=== PATIENT | female | born 1940 | race Caucasian/White ===

== ENCOUNTER → 2016-08-21 | Outpatient (CLI) | payer OTHER ==
[2015-04-12 10:54] VITALS: BP 134/82
[~2016-08-21] MED LIST: DOCU-27 PO; GABA-585 PO; GLIM4TAB2 PO; HYDR2TAB13 PO; IBUP-1060 PO; INSU300I SQ; IOHEXOL 180 MG/ML 10 ML VIAL. ONE; LEVO100T5 PO; LISI1TAB7 PO; METF10002 PO; METH4TAB2 PO; OMEP20CA9 PO; OXYC-244 PO; POLY17PO5 PO; SIMV40TA3 PO; SITA100T PO; methylPREDNISolone ACETATE 40 MG/ML VIAL. ONE; methylPREDNISolone ACETATE 80 MG/ML VIAL. ONE
--- NOTE | 2016-08-21 23:40 | PAIN ---
DATE OF SERVICE: 08/21/2016 DIAGNOSES: Lumbar radiculopathy with lumbar degenerative disk disease and lumbar spinal stenosis. HISTORY OF PRESENT ILLNESS: The patient is a 75-year-old female who returns for followup status post lumbar epidural steroid injection x 2. The patient reports she did very well after last injection, about 60% improvement overall in her low back and bilateral gluteus and lower extremity pain with some pain now radiating to the anterior thigh as well bilaterally, essentially right equal to left. The patient reports worse with standing and walking, changing positions, better as the day goes on. She is also going to start some physical therapy about 1 week and some pool therapy as well that she has arranged through her [employer] membership. The patient reports otherwise doing well. No new motor or sensory deficits. Still some pain in the low back and legs ____ reports anywhere from a 3 to 7 on a scale of 10 and is currently a 3 today. The patient describes it is dull and aching for the most part, sometimes a shooting pain in the legs as well. The patient's old chart was reviewed as her current medication regimen and updated. Current review of systems is updated today as well. PHYSICAL EXAMINATION: VITAL SIGNS: The patient's blood pressure is 159/79, pulse 80, respirations 18, temperature 98.2 degrees Fahrenheit, height is 5 feet 5 inches, weight is 222 pounds. GENERAL: The patient is awake, alert, oriented, appropriate, very pleasant demeanor. HEENT: Shows normocephalic, atraumatic. Extraocular movements are intact and symmetrical. Oral cavity shows mucous membranes moist and pink. Dentition is intact. NECK: Shows anterior throat supple without palpable lymphadenopathy noted. Swallow reflex is symmetrical. CHEST: Shows normal on inspection. Breath sounds clear to auscultation bilaterally. HEART: Shows S1 and S2 clear. ABDOMEN: Obese, soft, nontender, nondistended. BACK: Shows spine grossly midline. Slight exaggeration of thoracic kyphosis and mild flattening of lumbar lordotic curvature. Lumbar paraspinous muscle shows some mild tenderness with palpation in the paraspinous musculature of the lumber spine without significant radiation and appears symmetrical and normal muscle girth. The patient shows good rotational motion of lumbar spine both laterally as well as extension and flexion without significant pain reported. EXTREMITIES: Lower extremities showed deep tendon reflexes 1+, the patellar and tendo calcaneus tendons are equal. Motor exam is strong with 5/5 dorsiflexion and extension on the right and approximately 4/5 on the left. PLAN: Options were discussed with the patient. We will proceed with the third lumbar epidural steroid injection today with fluoroscopic guidance. Risks were again discussed including, but not limited to bleeding, infection, possibility of epidural hematoma and subsequent neurologic compromise, dural puncture, headaches, spinal cord and/or nerve damage, side effects of steroid medication and poor results regarding pain control. The patient understands and wishes to proceed. The patient will return to clinic in approximately 2 weeks for followup, was counseled on return appointment, activity level and side effects to be aware of. DIAGNOSIS: Lumbar radiculopathy with lumbar degenerative disk disease and lumbar spinal stenosis. PROCEDURE: Lumbar epidural steroid injection, translaminar approach at the L4-L5 level using C-arm fluoroscopic guidance as well as local anesthetic. Medications injected are 120 mg Depo-Medrol plus 10 mL of preservative-free normal saline and 2 mL of Isovue contrast. CONDITION AT DISCHARGE: Stable. The patient tolerated the procedure well, had no complications. CANDELARIA YATES MD DR: KELVIN/timothy JOB#: [id number] / [id number]
== END | disposition home or self-care (01) ==
LOC: PNCL 09:27
PROVIDERS: ATTEND Anesthesiology
DX: M51.16 Intervertebral disc disorders with radiculopathy, lumbar region (principal); M48.06 Spinal stenosis, lumbar region; E78.00 Pure hypercholesterolemia, unspecified; J40 Bronchitis, not specified as acute or chronic; K21.9 Gastro-esophageal reflux disease without esophagitis; M19.90 Unspecified osteoarthritis, unspecified site; E11.9 Type 2 diabetes mellitus without complications; E03.9 Hypothyroidism, unspecified; F17.200 Nicotine dependence, unspecified, uncomplicated; D64.9 Anemia, unspecified; Z90.710 Acquired absence of both cervix and uterus; Z90.49 Acquired absence of other specified parts of digestive tract; N39.0 Urinary tract infection, site not specified
CPT/HCPCS: 62323; J1030; J1040

== ENCOUNTER → 2016-11-30 | Outpatient (CLI) | payer OTHER ==
[2015-04-12 10:54] VITALS: BP 134/82
[~2016-11-30] MED LIST changes: -IOHEXOL 180 MG/ML 10 ML VIAL. ONE; +METF-620 PO; -METF10002 PO; +POLY17PO29 PO; -POLY17PO5 PO; -methylPREDNISolone ACETATE 40 MG/ML VIAL. ONE; -methylPREDNISolone ACETATE 80 MG/ML VIAL. ONE
--- NOTE | 2016-12-01 03:44 | PAIN ---
DATE OF SERVICE: 11/30/2016 DIAGNOSES: Lumbar radiculopathy with lumbar degenerative disk disease and lumbar spinal stenosis. HISTORY OF PRESENT ILLNESS: The patient is a 76-year-old female who returns for followup status post lumbar epidural steroid injections in the past, most recently on 08/21/2016. The patient reports she did very well with about 75% improvement in her low back and bilateral lower extremity pain. The pain is beginning to return now over the past week or 2 and being caused more pain with walking, standing, change in positions in the low back, radiating to the posterior gluteus, posterior lateral thighs into the posterior lower legs into the back of the knees and into the thighs on occasion, but only when she is on her feet for more than about 10-15 minutes. The patient reports when she sits down, this helps decrease the pain after about 5 or 10 minutes. She is having some difficulty sleeping at night that she was doing very well initially, but the pain is beginning awaken her from sleep at night, but only every other night or so, not every night. The patient reports pain is anywhere from 3-7 on a scale 10 and is 3 currently, 7 with standing, walking, changing positions or sitting for prolonged periods, although usually the sitting does help the pain. The patient reports it continues to radiate into the posterior gluteus thighs bilaterally. It is a dull and aching pain, also a sharp shooting pain occasionally with walking. The patient reports no new motor or sensory deficits, no new bowel or bladder incontinence or other complaints. PHYSICAL EXAMINATION: VITAL SIGNS: The patient's blood pressure is 151/77, pulse 73, respirations are 20, temperature is 97.9 degrees Fahrenheit. Height is 5 feet 5 inches, weighs 220 pounds. GENERAL: The patient is awake, alert, oriented, appropriate, very pleasant demeanor. HEENT: Head shows normocephalic, atraumatic. Extraocular movements are intact and symmetrical. Oral cavity, mucous membranes are moist and pink. Dentition is intact. NECK: Shows anterior throat supple without palpable lymphadenopathy noted. Swallow reflex is symmetrical. CHEST: Shows normal on inspection. Breath sounds clear to auscultation bilaterally. HEART: Shows S1 and S2 clear. No murmurs auscultated. ABDOMEN: Soft, nontender, nondistended. No palpable organomegaly is noted. No rebound or guarding demonstrated. BACK: Shows spine grossly midline. The patient's lumbar paraspinous musculature shows some asymmetry on inspection, but without obvious decreasing curvature. With palpation shows some moderate tenderness with palpation throughout the upper, middle, lower distribution. Paraspinous muscles are firm with normal muscle girth and only very diffuse tenderness and only mildly so. No tenderness over the spinous processes, sacrum or sacroiliac regions. The patient shows good rotational motion of the lumbar spine, both laterally as well as extension and flexion without significant increase in pain. LOWER EXTREMITIES: Showed deep tendon reflexes at 1+ in the patellar and tendo calcaneus tendons. Motor exam is strong with approximately 5/5 right dorsiflexion, extension and 4/5 on the left dorsiflexion, extension and straight leg raise noted to be mildly positive bilaterally about 45 degrees, but is quickly relieved with knee flexion bilaterally. Gaenslen's and Wild's maneuvers are negative bilaterally as well. Peripheral pulses are 1+ posterior tibial and dorsalis pedis pulses. No peripheral edema is noted. Options were discussed with the patient and the patient's old chart was reviewed as her current medication regimen updated. Current review of systems updated today as well. We will proceed with a preauthorization for lumbar epidural steroid injection. She has done very well with these in the past. The patient will return to clinic in approximately 1 week. We will plan on proceeding with lumbar epidural steroid injection at that time. The patient will continue with her physical therapy in the pool. She has been going to the [facility] and using the pool there at least twice a week, which she reports she feels does help keep the back strong, but is not helping with pain radiating into the lower extremities. CANDELARIA YATES MD DR: KELVIN/timothy JOB#: [id number] / [id number]
== END | disposition home or self-care (01) ==
LOC: PNCL 11:01
PROVIDERS: ATTEND Anesthesiology
DX: M51.16 Intervertebral disc disorders with radiculopathy, lumbar region (principal); M48.06 Spinal stenosis, lumbar region
CPT/HCPCS: G0463

== ENCOUNTER 2017-04-04 13:20 | Emergency (ER) | payer OTHER ==
[~2017-04-04] VITALS: Ht 165.1 cm; Wt 99.3 kg
[~2017-04-04 13:20] MED LIST changes: +DOCU-109 PO; -DOCU-27 PO; -HYDR2TAB13 PO; +HYDR2TAB31 PO; -OXYC-244 PO; +OXYC-327 PO
--- NOTE | 2017-04-04 13:53 | PHYS DOC ---
Past Medical History Past Medical History: Arthritis, Diabetes-Type II, High Cholesterol Past Surgical History: Cholecystectomy, Hysterectomy, Other Additional Past Surgical Histo: bowel resection Alcohol Use: None Drug Use: None Adult General Chief Complaint Chief Complaint: GI PROBLEM HPI HPI Patient is a 76 year old female who presents with weakness, decreased appetite, loose stools. She states she got a colonoscopy about a week ago and Dr. Padilla. She states she's having some discomfort suprapubically and epigastric area. She denies any blood in her stools. She states she's had a colectomy in the past secondary to a polyp. She states it she saw her primary care physician they gave her some white pills to take and it helped decrease the amount of stools but now she is out of those pills and she's having increasing stool again. She states that today she felt a little weaker than normal due to the diarrhea. Review of Systems Review of Systems Constitutional: Denies fever or chills [] Eyes: Denies change in visual acuity, redness, or eye pain [] HENT: Denies nasal congestion or sore throat [] Respiratory: Denies cough or shortness of breath [] Cardiovascular: No additional information not addressed in HPI [] GI: abdominal pain, nausea, vomiting,Denies bloody stools or diarrhea [] : Denies dysuria or hematuria [] Musculoskeletal: Denies back pain or joint pain [] Integument: Denies rash or skin lesions [] Neurologic: Denies headache, focal weakness or sensory changes [] Endocrine: Denies polyuria or polydipsia [] Current Medications Current Medications Current Medications Medications (Trade) Dose Ordered Sig/[facility] Start Time Stop Time Status Last Admin Dose Admin Info (Do NOT chart on this entry -- for MONITORING) 1 each PRN DAILY PRN 04/04/17 15:45 04/06/17 15:44 Iohexol (Omnipaque 240 Mg/ml) 30 ml 1X ONCE 04/04/17 15:30 04/04/17 15:31 DC 04/04/17 16:35 30 ML Allergies Allergies Allergies Coded Allergies Type Severity Reaction Last Updated Verified No Known Drug Allergies 12/26/14 No Physical Exam Physical Exam Constitutional: Well developed, well nourished, no acute distress, non-toxic appearance. [] HENT: Normocephalic, atraumatic, bilateral external ears normal, oropharynx moist, no oral exudates, nose normal. [] Eyes: PERRLA, EOMI, conjunctiva normal, no discharge. [] Neck: Normal range of motion, no tenderness, supple, no stridor. [] Cardiovascular:Heart rate regular rhythm, no murmur [] Lungs & Thorax: Bilateral breath sounds clear to auscultation [] Abdomen: Bowel sounds normal, soft, nontender to palpation epigastric area and superpubic area, no rebound or guarding, no masses, no pulsatile masses. [] Skin: Warm, dry, no erythema, no rash. [] Back: No tenderness, no CVA tenderness. [] Extremities: No tenderness, no cyanosis, no clubbing, ROM intact, no edema. [] Neurologic: Alert and oriented X 3, normal motor function, normal sensory function, no focal deficits noted. [] Psychologic: Affect normal, judgement normal, mood normal. [] Current Patient Data Vital Signs Vital Signs Date Time Temp Pulse Resp B/P (MAP) Pulse Ox O2 Delivery O2 Flow Rate FiO2 04/04/17 14:00 98.2 73 19 134/82 (99) 96 Room Air 98.2 Lab Values Laboratory Tests Test 04/04/17 13:50 04/04/17 14:00 04/04/17 17:30 Urine Collection Type Unknown Urine Color Yellow Urine Clarity Clear Urine pH 6.0 Urine Specific [place] 1.015 Urine Protein Negative mg/dL (NEG-TRACE) Urine Glucose (UA) 500 mg/dL (NEG) Urine Ketones (Stick) Negative mg/dL (NEG) Urine Blood Negative (NEG) Urine Nitrite Negative (NEG) Urine Bilirubin Negative (NEG) Urine Urobilinogen Dipstick 0.2 mg/dL (0.2 mg/dL) Urine Leukocyte Esterase Moderate (NEG) Urine RBC Rare /HPF (0-2) Urine WBC 11-20 /HPF (0-4) Urine Squamous Epithelial Cells Few /LPF Urine Bacteria Few /HPF (0-FEW) White Blood Count 9.1 x10^3/uL (4.0-11.0) Red Blood Count 4.43 x10^6/uL (3.50-5.40) Hemoglobin 13.2 g/dL (12.0-15.5) Hematocrit 39.6 % (36.0-47.0) Mean Corpuscular Volume 90 fL (79-100) Mean Corpuscular Hemoglobin 30 pg (25-35) Mean Corpuscular Hemoglobin Concent 33 g/dL (31-37) Red Cell Distribution Width 14.3 % (11.5-14.5) Platelet Count 222 x10^3/uL (140-400) Neutrophils (%) (Auto) 69 % (31-73) Lymphocytes (%) (Auto) 23 % (24-48) L Monocytes (%) (Auto) 7 % (0-9) Eosinophils (%) (Auto) 1 % (0-3) Basophils (%) (Auto) 1 % (0-3) Neutrophils # (Auto) 6.3 x10^3uL (1.8-7.7) Lymphocytes # (Auto) 2.1 x10^3/uL (1.0-4.8) Monocytes # (Auto) 0.6 x10^3/uL (0.0-1.1) Eosinophils # (Auto) 0.0 x10^3/uL (0.0-0.7) Basophils # (Auto) 0.0 x10^3/uL (0.0-0.2) Prothrombin Time 12.4 SEC (11.7-14.0) Prothrombin Time INR 1.0 (0.8-1.1) Sodium Level 134 mmol/L (136-145) L Potassium Level 4.1 mmol/L (3.5-5.1) Chloride Level 97 mmol/L (98-107) L Carbon Dioxide Level 26 mmol/L (21-32) Anion Gap 11 (6-14) Blood Urea Nitrogen 13 mg/dL (7-20) Creatinine 1.4 mg/dL (0.6-1.0) H Estimated GFR (Cockcroft-Gault) 36.8 Glucose Level 219 mg/dL (70-99) H Calcium Level 9.5 mg/dL (8.5-10.1) Magnesium Level 1.9 mg/dL (1.8-2.4) Total Bilirubin 0.3 mg/dL (0.2-1.0) Direct Bilirubin 0.1 mg/dL (0.0-0.2) Aspartate Amino Transferase (AST) 28 U/L (15-37) Alanine Aminotransferase (ALT) 32 U/L (14-59) Alkaline Phosphatase 55 U/L (46-116) Creatine Kinase 42 U/L (26-192) 39 U/L (26-192) Creatine Kinase MB (Mass) 0.5 ng/mL (0.0-3.6) 0.5 ng/mL (0.0-3.6) Creatine Kinase MB Relative Index % (0-4) % (0-4) Troponin I Quantitative < 0.017 ng/mL (0.000-0.055) < 0.017 ng/mL (0.000-0.055) AN-Sfu-E-Type Natriuretic Peptide 137 pg/mL (0-124) H Total Protein 7.7 g/dL (6.4-8.2) Albumin 4.2 g/dL (3.4-5.0) Lipase 92 U/L (73-393) Thyroid Stimulating Hormone (TSH) 1.423 uIU/mL (0.358-3.74) Laboratory Tests 04/04/17 14:00 Laboratory Tests 04/04/17 14:00 EKG EKG EKG shows sinus rhythm 3-[address] elevations, T-wave inversions noted in 1 and aVL, right axis deviation, QTC 411 ms, as interpreted by me. Radiology/Procedures Radiology/Procedures [facility] [address], [place] [id number] IMAGING REPORT Signed PATIENT: BENEDICTO ACOSTA ACCOUNT: [id number] : 1940 LOCATION: ER AGE: 76 SEX: F EXAM STATUS: REG ER ORD. PHYSICIAN: ANGELO MEJIA MD REASON: abd pain PROCEDURE: CT ABD PEL W/ORAL CONTRST ONLY CT of the abdomen and pelvis without contrast, 04/04/2017: History: Diarrhea No IV contrast was administered due to the patient's renal insufficiency. The unopacified liver shows no abnormality. The gallbladder is surgically absent. No pancreatic abnormality is seen. The spleen is of normal size. The kidneys show no evidence of obstruction. There is mild streaky bilateral perinephric scarring and/or edema, similar to that seen on 12/31/2014. The adrenal glands are unremarkable. Aortoiliac calcific plaquing is present without evidence of aneurysm. No abdominal or pelvic adenopathy is seen. The uterus is surgically absent. The bowel loops are not dilated. No mural thickening is seen. No free air or significant free fluid is evident in the abdomen or pelvis. There is diastases of the rectus abdominis musculature with anterior bulging of the intervening fascia. A similar appearance was present on the previous study. Moderate multilevel degenerative changes are present in the spine. IMPRESSION: 1. Chronic findings as described above. 2. No acute abdominal or pelvic abnormality is detected. PQRS Compliance Statement: One or more of the following individualized dose reduction techniques were utilized for this examination: 1. Automated exposure control 2. Adjustment of the mA and/or kV according to patient size 3. Use of iterative reconstruction technique DICTATED and SIGNED BY: VICK BAH MD DATE: 04/04/17 1650 CC: [facility]; ANGELO MEJIA MD ~ Impressions: Diarrhea Diabetes UTI Course & Med Decision Making Course & Med Decision Making Pertinent Labs and Imaging studies reviewed. (See chart for details) Labs show possible urinary tract infection. Her repeat troponin is negative. CT adamant pelvis were nonacute. We'll discharge with 3 days of Cipro 500 mg twice daily. Patient has a follow-up appointment tomorrow with Dr. Morales. Return precautions given. Patient's agreeable Plan B discharged in stable condition this time. Dragon Disclaimer Dragon Disclaimer This electronic medical record was generated, in whole or in part, using a voice recognition dictation system. Departure Departure Impression: Primary Impression: Abdominal pain Additional Impression: UTI (urinary tract infection) Disposition: 01 HOME, SELF-CARE Condition: STABLE Referrals: [facility] (PCP) Patient Instructions: Chronic Diarrhea Additional Instructions: The CAT scan revealed and pelvis did not show any acute abnormality's. Your labs also are within normal limits. Your follow-up appointment tomorrow with Dr. Morales. We've offered her admission to the hospital but you have declining rather go home. If you develop weakness, worsening pain, troubles breathing, or other concerns please return back to emergency department. Scripts Ciprofloxacin Hcl (CIPRO) 500 Mg Tablet 1 TAB PO BID, #6 TAB Prov: ANGELO MEJIA MD 04/04/17 Problem Qualifiers Primary Impression: Abdominal pain Abdominal location: epigastric Qualified Codes: R10.13 - Epigastric pain Additional Impression: UTI (urinary tract infection) Urinary tract infection type: acute cystitis Hematuria presence: without hematuria Qualified Codes: N30.00 - Acute cystitis without hematuria ANGELO MEJIA MD Apr 04, 2017 13:53
[2017-04-04 14:00] VITALS: BP 134/82
[2017-04-04 14:05] LABS: BILIRUBIN,URINE NEGATIVE (NEG); GLUCOSE,URINE 500 mg/dL (NEG); NITRITE,URINE NEGATIVE (NEG); PROTEIN,URINE NEGATIVE (NEG-TRACE); UROBILINOGEN,URINE 0.2 mg/dL (0.2 mg/dL)
[2017-04-04 14:15] LABS: BASO % 1 % (0-3); EOS % 1 % (0-3); HEMATOCRIT 39.6 % (36.0-47.0); HEMOGLOBIN 13.2 g/dL (12.0-15.5); LYMPH # 2.1 x10^3/uL (1.0-4.8); LYMPH % 23 % (24-48); MEAN CORPUSCULAR HEMOGLOBIN 30 pg (25-35); MEAN CORPUSCULAR HGB CONC 33 g/dL (31-37); MEAN CORPUSCULAR VOLUME 90 fL (79-100); MONO % 7 % (0-9); NEUT % 69 % (31-73); PLATELET COUNT 222 x10^3/uL (140-400); RED BLOOD COUNT 4.43 x10^6/uL (3.50-5.40); RED CELL DISTRIBUTION WIDTH 14.3 % (11.5-14.5); WHITE BLOOD COUNT 9.1 x10^3/uL (4.0-11.0)
[2017-04-04 14:22] LABS: BACTERIA,URINE FEW /HPF (0-FEW); RBC,URINE RARE /HPF (0-2); SQUAMOUS EPITHELIAL CELL,UR FEW /LPF
[2017-04-04 14:24] LABS: CALCIUM 9.5 mg/dL (8.5-10.1); CREATININE 1.4 mg/dL (0.6-1.0); GFR 36.8; POTASSIUM 4.1 mmol/L (3.5-5.1); PROTHROMBIN TIME PATIENT 12.4 SEC (11.7-14.0)
--- NOTE | 2017-04-04 14:26 | RAD ---
Portable chest, 04/04/2017: History: Weakness Comparison is made to a study from 09/01/2011. The heart size and pulmonary vascularity are normal. There is calcific plaquing of the aorta. A calcified granuloma is present in the right base. No acute infiltrate is seen. There is no evidence of pleural fluid. IMPRESSION: No acute cardiopulmonary abnormality is detected.
[2017-04-04 14:31] LABS: ALBUMIN 4.2 g/dL (3.4-5.0); DIRECT BILIRUBIN 0.1 mg/dL (0.0-0.2); MAGNESIUM 1.9 mg/dL (1.8-2.4); TOTAL BILIRUBIN 0.3 mg/dL (0.2-1.0); TOTAL PROTEIN 7.7 g/dL (6.4-8.2)
[2017-04-04 14:38] LABS: CKMB MASS 0.5 ng/mL (0.0-3.6); CREATINE KINASE 42 U/L (26-192)
[2017-04-04] MEDS ORDERED: IOHEXOL 240 MG/ML 50ML VIAL. PO ONE (15:30)
[2017-04-04] MEDS ORDERED: CONTRAST GIVEN MC PRN (15:45)
--- NOTE | 2017-04-04 16:58 | RAD ---
CT of the abdomen and pelvis without contrast, 04/04/2017: History: Diarrhea No IV contrast was administered due to the patient's renal insufficiency. The unopacified liver shows no abnormality. The gallbladder is surgically absent. No pancreatic abnormality is seen. The spleen is of normal size. The kidneys show no evidence of obstruction. There is mild streaky bilateral perinephric scarring and/or edema, similar to that seen on 12/31/2014. The adrenal glands are unremarkable. Aortoiliac calcific plaquing is present without evidence of aneurysm. No abdominal or pelvic adenopathy is seen. The uterus is surgically absent. The bowel loops are not dilated. No mural thickening is seen. No free air or significant free fluid is evident in the abdomen or pelvis. There is diastases of the rectus abdominis musculature with anterior bulging of the intervening fascia. A similar appearance was present on the previous study. Moderate multilevel degenerative changes are present in the spine. IMPRESSION: 1. Chronic findings as described above. 2. No acute abdominal or pelvic abnormality is detected. PQRS Compliance Statement: One or more of the following individualized dose reduction techniques were utilized for this examination: 1. Automated exposure control 2. Adjustment of the mA and/or kV according to patient size 3. Use of iterative reconstruction technique
[2017-04-04 18:05] LABS: CKMB MASS 0.5 ng/mL (0.0-3.6); CREATINE KINASE 39 U/L (26-192)
[2017-04-04] MEDS ORDERED: CIPR500T94 PO (18:09)
--- NOTE | 2017-04-05 06:33 | EKG ---
[facility] [address] [place] [id number] Test Date: 2017-04-04 Test Time: 14:27:14 Pat Name: BENEDICTO ACOSTA Department: Room: Gender: F [employer]: : 1940 Requested By: ANGELO MEJIA Order Number: [id number] Reading MD: Sarbjit Pandey Measurements Intervals [place] Rate: 71 P: HI: QRS: 180 QRSD: 74 T: 148 QT: 374 QTc: 411 Interpretive Statements SINUS RHYTHM LIMB LEAD MISPLACEMENT PAC Electronically Signed On 04-09-2017 12:08:22 CDT by Sarbjit Pandey
== END 2017-04-04 18:20 | disposition home or self-care (01) ==
LOC: ER 13:20
DX: R10.13 Epigastric pain (principal); N30.00 Acute cystitis without hematuria; R19.7 Diarrhea, unspecified; M19.90 Unspecified osteoarthritis, unspecified site; E11.9 Type 2 diabetes mellitus without complications; E78.00 Pure hypercholesterolemia, unspecified; Z90.710 Acquired absence of both cervix and uterus; Z90.49 Acquired absence of other specified parts of digestive tract
CPT/HCPCS: 36415; 71010; 74176; 80048; 80076; 81001; 82553; 83690; 83735; 83880; 84443; 84484; 85025; 85610; 87086; 93005; 99285; Q9966

== ENCOUNTER → 2017-05-17 | Outpatient (CLI) | payer OTHER ==
[~2017-05-17] MED LIST changes: +CIPR500T94 PO; +ESOM20CA PO; +SITA1TAB11 PO
--- NOTE | 2017-05-17 15:24 | KCIC ---
5 views lumbar spine 05/17/2017 CLINICAL INDICATION: Low back pain. COMPARISON: None. FINDINGS: There may be 6 lumbar type vertebral bodies with the first nonrib-bearing vertebral body considered L1 for the purposes of this dictation. No acute lumbar spine fracture. There is 7 mm of anterolisthesis of L5 on L6. Multilevel lumbar disc degeneration lanre to a moderate degree at L3-L4 with disc space narrowing, marginal osteophyte formation and endplate sclerosis. Calcified atheromatous disease of the abdominal aorta. Right upper quadrant cholecystectomy clips. IMPRESSION: 1. Note is made of probable 6 lumbar type vertebral bodies. 2. Grade one anterolisthesis L5 on L6. 3. Multilevel disc degeneration, greatest remarkable degree at L3-L4. Electronically signed by: Alexys Cornelius MD (05/17/2017 3:20 PM) [id number]
== END | disposition home or self-care (01) ==
LOC: KCIC 14:21
PROVIDERS: ATTEND Family Medicine
DX: M51.36 Other intervertebral disc degeneration, lumbar region (principal); M54.40 Lumbago with sciatica, unspecified side
CPT/HCPCS: 72110

== ENCOUNTER → 2017-05-21 | Outpatient (CLI) | payer OTHER ==
--- NOTE | 2017-05-21 15:56 | PAIN ---
DATE OF SERVICE: 05/21/2017 DIAGNOSES: Lumbar radiculopathy with lumbar degenerative disk disease, lumbar spinal stenosis. HISTORY OF PRESENT ILLNESS: The patient is a 76-year-old female who returns for followup status post lumbar epidural steroid injections, most recently on 08/21/2016, with a good success in the past with her third injection. The patient reports she had about 75% improvement in the bilateral lower extremity pain as well as her low back pain. It is beginning to return now. We had preauthorized her for additional injection after her visit on 11/30/2016, but she was unable to return. She had some family issues come up and rescheduled. Her authorization has now and she would like to get this reset. The patient reports still significant pain over the past several weeks in the low back, bilateral lower extremities, pain has begun to return, more pain with walking, standing, change in positions, radiating into the posterior gluteus, posterior lateral thighs, into the posterior lower legs, into the back of the knees, into the thighs on occasion, but only when she is on her feet for more than about 15-20 minutes. The patient reports when she sits down, it helps decrease the pain after about 5 minutes or so, some difficulty sleeping at night which has come back. Initially, she did very well after her last injections. The patient still has radiation into the posterior gluteus, posterior thighs, lateral thighs, anterior thighs into the medial lower legs in an L4-L5 dermatomal distribution again bilaterally, somewhat worse on the right than the left at this time, but present bilaterally. The patient describes it as aching, sharp, shooting pain; rated as a 7 on a scale of 10 at its worse, about a 6 on average and a 3 its least. Dull aching pain, sharp shooting pain and occasionally with walking as well. The patient reports no new motor or sensory deficits, no new bowel or bladder incontinence or other findings at this time. PHYSICAL EXAMINATION: VITAL SIGNS: The patient's blood pressure is 126/91, pulse 78, respirations are 18, temperature 97.8 degrees Fahrenheit, height is 5 feet 2 inches, weight is 212 pounds. GENERAL: The patient is awake, alert, oriented, appropriate, is a very pleasant demeanor. HEENT: Head shows normocephalic, atraumatic. The patient wears eye glasses. Extraocular movements are intact and symmetrical. Oral cavity: Mucous membranes are moist and pink. Dentition is intact. NECK: Shows anterior throat supple without palpable lymphadenopathy noted. Swallow reflex is symmetrical. Neck shows full rotational motion of cervical spine, both laterally as well as extension and flexion without difficulty. CHEST: Shows normal with inspection. Breath sounds are clear to auscultation bilaterally. No rales, rhonchi, wheezes are auscultated. HEART: Shows S1 and S2 clear. No murmurs auscultated. ABDOMEN: Obese, soft, nontender, nondistended. No palpable organomegaly is noted. No rebound or guarding. MUSCULOSKELETAL: The patient's back shows grossly midline spine. Normal appearing cervical lordotic curvature, slight increase in thoracic kyphotic curvature, some mild flattening of lumbar lordotic curvature. Musculature in the lumbar distribution shows some asymmetry, on inspection slightly more hypertrophied on the right than the left only in the middle and lower distribution of paraspinous muscles, but only diffusely tender with palpation. Moderate tenderness with palpation throughout the middle and lower distribution bilaterally, but worse on the right than the left paraspinous muscles, normal girth, very diffusely tender, but only to a moderate extent without radiation. No trigger points, no abnormalities noted. No tenderness over the spinous processes, sacrum or sacroiliac regions. The patient shows good rotation and motion of the lumbar spine both laterally as well as extension and flexion without significant pain reported. The patient's lower extremities show deep tendon reflexes 1+ in the patellar and tendo-calcaneus tendons are equal. Motor exam is strong with 5/5 dorsiflexion, extension, quadriceps and hamstring flexion and are symmetrical. The patient's straight leg raise noted to be mildly positive on the right at about 45 degrees, but is decreased with knee flexion, also mildly positive on the left at about 45 degrees, but with relief with knee flexion on the left side only. The patient's peripheral pulses are 1+ posterior tibial pulses without any peripheral edema noted bilateral. Lower extremities are warm and dry to touch, equal in color and appearance. PLAN: Options were discussed with the patient. At this time, the patient's old chart was reviewed as her current medication regimen updated. Current review of systems updated today as well. We will preauthorize the patient for lumbar epidural steroid injection as she has done very well with these in the past and with her family situation, had to wait to come back and the previous preauthorization had . The patient will continue with physical therapy. She is doing some water therapy and water aerobics at a local [facility] and we will encourage her to maintain this as well as strengthening and stretching exercises, which she does at home on her own as well. We will have her returned to clinic in approximately 1-2 weeks as available and plan on lumbar epidural steroid injection at that time. CANDELARIA YATES MD DR: KELVIN/timothy JOB#: [id number] / [id number]
== END | disposition home or self-care (01) ==
LOC: PNCL 14:01
PROVIDERS: ATTEND Anesthesiology
DX: M51.16 Intervertebral disc disorders with radiculopathy, lumbar region (principal); M48.061 Spinal stenosis, lumbar region without neurogenic claudication
CPT/HCPCS: 99212

== ENCOUNTER → 2017-05-30 | Outpatient (CLI) | payer OTHER ==
--- NOTE | 2017-05-30 14:50 | KCIC ---
EXAM: Lumbar spine MRI without contrast. HISTORY: Lower back pain. Right lower extremity radiculopathy. TECHNIQUE: Multiplanar, multisequence magnetic resonance imaging of the lumbar spine was performed without contrast. COMPARISON: Radiographs dated 05/17/2017. FINDINGS: There is lumbar levoscoliosis centered at L2-L3. There is grade 1 anterolisthesis of L4 on L5, measuring 4 mm. There is grade 1 anterolisthesis of L5 on S1, measuring 3 mm. There is slight retrolisthesis of L2 on L3 and L3 on L4. There is degenerative endplate remodeling with disc space narrowing, osteophytosis and Schmorl's node formation predominantly at L2-L3. No suspicious osseous lesion is seen. The conus terminates at L1-L2. At L1-L2, there is a shallow left paracentral disc protrusion superimposed on disc bulge and endplate remodeling. There is facet arthropathy. There is no stenosis. At L2-L3, there is a broad-based posterior central disc protrusion with 3 mm superior and inferior extrusion superimposed on a right lateral predominant disc bulge and endplate osteophytosis. There is mild to moderate right and mild left facet arthropathy. There is hypertrophy of the ligamentum flavum. There is slight retrolisthesis. There is abutment of the exiting left L2 nerve root without significant foraminal stenosis. There is mild central canal stenosis. At L3-L4, there is a broad-based left paracentral to foraminal disc protrusion and annular tear. There is mild bilateral facet arthropathy. There is abutment of the exiting left L3 nerve root without significant stenosis. At L4-L5, there is a broad-based posterior central disc protrusion and 3 mm right foraminal to extraforaminal superior extrusion superimposed on a disc bulge. There is moderate facet arthropathy. There is hypertrophy of the ligamentum flavum. There is a 7 left facet joint synovial cyst within the left extraforaminal space. There is grade 1 anterolisthesis. There is mild right greater than left foraminal stenosis with abutment of the exiting L4 nerve roots. There is minimal central canal stenosis. At L5-S1, there is a disc bulge. There is mild facet arthropathy. There is grade 1 anterolisthesis. There is abutment or near abutment of the exiting left L5 nerve root without significant stenosis. IMPRESSION: 1. Multilevel degenerative change throughout the lumbar spine, described in detail above. 2. Lumbar levoscoliosis and grade 1 anterolisthesis of L4 on L5 and L5 on S1. Electronically signed by: Herlinda Langston MD (05/30/2017 2:46 PM) [place] [id number]
== END | disposition home or self-care (01) ==
LOC: KCIC MRI 13:01
PROVIDERS: ATTEND Nurse Practitioner
DX: M51.16 Intervertebral disc disorders with radiculopathy, lumbar region (principal); M71.38 Other bursal cyst, other site; M48.061 Spinal stenosis, lumbar region without neurogenic claudication
CPT/HCPCS: 72148

== ENCOUNTER → 2017-06-04 | Outpatient (CLI) | payer OTHER ==
[~2017-06-04] MED LIST changes: +IOHEXOL 180 MG/ML 10 ML VIAL. ONE; +methylPREDNISolone ACETATE 40 MG/ML VIAL. ONE; +methylPREDNISolone ACETATE 80 MG/ML VIAL. ONE
--- NOTE | 2017-06-04 15:37 | PAIN ---
DATE OF SERVICE: 06/04/2017 DIAGNOSES: Lumbar radiculopathy with lumbar degenerative disk disease, lumbar spinal stenosis. HISTORY OF PRESENT ILLNESS: The patient is a 76-year-old female who returns for followup status post preauthorization for injection and would like to proceed with this. The patient continues to do her water therapy, which she is doing about 4 times a week on her own at the [facility] near her. The patient reports that she feels this is quite helpful with her low back, sometimes significant pain that radiates to the right posterior hip, posterior thigh, lateral thigh and to the lower leg. The patient reports it is 8 on a scale of 10 at its worst, is 7 on average, at 2 on a scale of 10, at least a 2 today. The patient reports it as burning, stabbing, radiating in the low back and right lower extremity as noted. The patient reports no new motor or sensory deficits, reports feels better at night, does not awaken her from sleep. She is better with sitting or lying down, and she is generally just on her feet, walking and standing. The patient did have a new MRI scan, which is dated 05/30/2017 showing broad based left paracentral foraminal disk protrusion at L3-L4, with a broad-based central disk protrusion and a 3 mm right foraminal to extraforaminal superior extrusion at L4-L5, with a facet joint synovial cyst in the left extraforaminal space. L5-S1 shows disk bulge with abutment or near abutment of the exiting left L5 nerve root and abutment of the L4 nerve root at L4-L5 as well, with mild right greater than left foraminal stenosis. PHYSICAL EXAMINATION: VITAL SIGNS: Today, the patient's blood pressure is 169/80, pulse is 81, respirations 18, temperature is 98.2 degrees Fahrenheit, height is 5 feet 2 inches, weighs 220 pounds. GENERAL: The patient is awake, alert, oriented, appropriate, very pleasant demeanor. HEENT: Head shows normocephalic, atraumatic. Extraocular movements are intact and symmetrical. Oral cavity shows mucous membranes moist and pink. Dentition is intact. NECK: Shows anterior throat supple without palpable lymphadenopathy noted. Swallow reflex is symmetrical. CHEST: Shows normal on inspection. Breath sounds are clear to auscultation bilaterally. HEART: Shows S1 and S2 clear. No murmurs auscultated. ABDOMEN: Soft, obese, nontender, nondistended. No palpable organomegaly. No rebound or guarding demonstrated. BACK: Shows spine grossly in midline with a slight exaggeration of thoracic kyphosis and mild flattening of lumbar lordotic curvature. Lumbar paraspinous muscle shows symmetrical on inspection, with palpation shows moderate tenderness bilaterally in the middle and lower distribution, right greater than left, but present and symmetrical. No tenderness over the spinous processes, sacrum or sacroiliac regions. The patient shows good rotation and motion of the lumbar spine, both laterally as well as extension and flexion without difficulty. EXTREMITIES: Lower extremities show deep tendon reflexes 1+ in the patellar and talocalcaneal tendons. Motor exam is strong with 5/5 dorsiflexion, extension, quadriceps and hamstring flexion bilaterally and equal. Peripheral pulses are 1+ posterior tibial bilaterally. No peripheral edema is noted. Options were discussed with the patient. The patient's old chart was reviewed as her current medication regimen updated. Current review of systems updated today as well. We will proceed with a lumbar epidural steroid injection today with fluoroscopic guidance. Risks were again discussed including, but not limited to bleeding, infection, possibility of epidural hematoma, subsequent neurologic compromise, dural puncture, headaches, spinal cord and/or nerve damage, side effects of steroid medication and poor results regarding pain control. The patient understands and wishes to proceed. The patient will return to clinic in approximately 2 weeks for followup. She was counseled as to return appointment, activity level and side effects to be aware of. DIAGNOSES: Lumbar radiculopathy with lumbar spinal stenosis, lumbar degenerative disk disease. PROCEDURE: Lumbar epidural steroid injection in translaminar approach at L4-L5 level using C-arm fluoroscopic guidance under sterile prep and drape using local anesthetic. MEDICATIONS INJECTED: Total 120 mg Depo-Medrol, plus 10 mL preservative-free normal saline, 2 mL Isovue for contrast. CONDITION AT DISCHARGE: Stable. The patient tolerated procedure well, had no complications. CANDELARIA YATES MD DR: KELVIN/timothy JOB#: [id number] / [id number]
== END | disposition home or self-care (01) ==
LOC: PNCL 10:49
PROVIDERS: ATTEND Anesthesiology
DX: M51.16 Intervertebral disc disorders with radiculopathy, lumbar region (principal); M48.061 Spinal stenosis, lumbar region without neurogenic claudication; E78.00 Pure hypercholesterolemia, unspecified; K21.9 Gastro-esophageal reflux disease without esophagitis; M19.91 Primary osteoarthritis, unspecified site; E11.9 Type 2 diabetes mellitus without complications; F17.200 Nicotine dependence, unspecified, uncomplicated; Z90.49 Acquired absence of other specified parts of digestive tract; Z86.39 Personal history of other endocrine, nutritional and metabolic disease; Z87.440 Personal history of urinary (tract) infections; Z87.39 Personal history of other diseases of the musculoskeletal system and connective tissue
CPT/HCPCS: 62323; J1030; J1040

== ENCOUNTER → 2017-07-03 | Outpatient (CLI) | payer OTHER ==
[~2017-07-03] MED LIST changes: -IOHEXOL 180 MG/ML 10 ML VIAL. ONE; -methylPREDNISolone ACETATE 40 MG/ML VIAL. ONE; -methylPREDNISolone ACETATE 80 MG/ML VIAL. ONE
--- NOTE | 2017-07-03 15:39 | KCIC ---
HAND BILAT 3V, FOOT BILAT 3V Indication: Polyarthralgia. . Comparison: No comparison is available. FINDINGS: 3 view right foot No evidence of acute fracture. Joint spaces and alignment are intact. Vascular calcifications are seen. There is a plantar calcaneal spur. IMPRESSION: No acute radiographic findings. 3 view left foot Narrowing of the first MTP joint, with small osteophytes. No acute fracture or bone destruction. No dislocation. There is some irregularity of the subchondral bone surface at the navicular and medial cuneiform could be old trauma or degenerative. IMPRESSION: Degenerative changes. No acute radiographic abnormality. Left hand Degenerative changes, greatest at the first carpometacarpal joint. No acute fracture. No aggressive bone destruction. No evidence of acute fracture. No aggressive bone destruction. No dislocation. There is ulnar plus variance. IMPRESSION: Degenerative changes without acute radiographic abnormality Right hand Degenerative changes are identified. These are more focally advanced at the right second DIP joint. Ulnar plus variance. No evidence of acute fracture or aggressive bone destruction. No dislocation. IMPRESSION: Degenerative changes, without acute radiographic abnormality. Electronically signed by: Baldev Chakraborty MD (07/03/2017 3:35 PM) [facility]
== END | disposition home or self-care (01) ==
LOC: KCIC 12:10
PROVIDERS: ATTEND Internal Medicine Rheumatology
DX: M19.072 Primary osteoarthritis, left ankle and foot (principal); M19.071 Primary osteoarthritis, right ankle and foot; M19.042 Primary osteoarthritis, left hand; M19.041 Primary osteoarthritis, right hand
CPT/HCPCS: 73130; 73630

== ENCOUNTER → 2017-09-24 | Outpatient (CLI) | payer OTHER ==
[~2017-09-24] MED LIST changes: -CIPR500T94 PO; +CONTRAST GIVEN MC; -DOCU-109 PO; -ESOM20CA PO; -GABA-585 PO; -GLIM4TAB2 PO; -HYDR2TAB31 PO; -IBUP-1060 PO; -INSU300I SQ; -LEVO100T5 PO; -LISI1TAB7 PO; -METF-620 PO; -METH4TAB2 PO; -OMEP20CA9 PO; -OXYC-327 PO; -POLY17PO29 PO; -SIMV40TA3 PO; -SITA100T PO; -SITA1TAB11 PO
[2017-09-24 10:43] LABS: BLOOD UREA NITROGEN 15 mg/dL (7-20)
[2017-09-24 10:43] LABS: GFR 54.1
[2017-09-24] MEDS: IOHEXOL 180 MG/ML 10 ML VIAL. IT ×2 (11:30)
== END | disposition home or self-care (01) ==
LOC: RAD 09:46
DX: M47.816 Spondylosis without myelopathy or radiculopathy, lumbar region (principal); M43.16 Spondylolisthesis, lumbar region; M48.061 Spinal stenosis, lumbar region without neurogenic claudication; M51.26 Other intervertebral disc displacement, lumbar region; M51.36 Other intervertebral disc degeneration, lumbar region; M47.898 Other spondylosis, sacral and sacrococcygeal region; E11.9 Type 2 diabetes mellitus without complications
CPT/HCPCS: 36415; 72132; 72265; 82565; 84520; Q9965

== ENCOUNTER → 2017-10-09 | Outpatient (CLI) | payer OTHER | END | disposition home or self-care (01) | LOC: PNCL 10:56 | DX: M51.16 Intervertebral disc disorders with radiculopathy, lumbar region (principal); M48.061 Spinal stenosis, lumbar region without neurogenic claudication; M47.896 Other spondylosis, lumbar region | CPT/HCPCS: G0463 ==

== ENCOUNTER → 2017-10-23 | Outpatient (CLI) | payer OTHER ==
[~2017-10-23] MED LIST changes: +BUPIVACAINE MPF 0.25% 10 ML VIAL.; -CONTRAST GIVEN MC; +IOHEXOL 180 MG/ML 10 ML VIAL.; +methylPREDNISolone ACETATE 40 MG/ML VIAL.; +methylPREDNISolone ACETATE 80 MG/ML VIAL.
== END ==
LOC: PNCL 10:24
DX: M51.36 Other intervertebral disc degeneration, lumbar region (principal); M48.061 Spinal stenosis, lumbar region without neurogenic claudication; M47.817 Spondylosis without myelopathy or radiculopathy, lumbosacral region
CPT/HCPCS: 64493; 64494; J1030; J1040; J3490; Q9965

== ENCOUNTER → 2017-11-13 | Outpatient (CLI) | payer OTHER | END | disposition home or self-care (01) | LOC: PNCL 10:54 | DX: M51.16 Intervertebral disc disorders with radiculopathy, lumbar region (principal); M47.816 Spondylosis without myelopathy or radiculopathy, lumbar region; M48.061 Spinal stenosis, lumbar region without neurogenic claudication; M47.896 Other spondylosis, lumbar region | CPT/HCPCS: G0463 ==

== ENCOUNTER → 2017-12-12 | Outpatient (CLI) | payer OTHER | END | disposition home or self-care (01) | LOC: PNCL 09:30 | DX: M51.16 Intervertebral disc disorders with radiculopathy, lumbar region (principal); M48.061 Spinal stenosis, lumbar region without neurogenic claudication; M47.817 Spondylosis without myelopathy or radiculopathy, lumbosacral region; E78.00 Pure hypercholesterolemia, unspecified; K21.9 Gastro-esophageal reflux disease without esophagitis; E11.9 Type 2 diabetes mellitus without complications; E03.9 Hypothyroidism, unspecified; Z86.010 Personal history of colon polyps; Z90.49 Acquired absence of other specified parts of digestive tract; Z98.890 Other specified postprocedural states; Z90.710 Acquired absence of both cervix and uterus; Z87.440 Personal history of urinary (tract) infections; M19.90 Unspecified osteoarthritis, unspecified site; F17.200 Nicotine dependence, unspecified, uncomplicated; D64.9 Anemia, unspecified; Z80.1 Family history of malignant neoplasm of trachea, bronchus and lung; Z82.49 Family history of ischemic heart disease and other diseases of the circulatory system | CPT/HCPCS: 64493; 64494; J1030; J1040; J3490; Q9965 ==

== ENCOUNTER → 2018-01-01 | Outpatient (CLI) | payer OTHER ==
[~2018-01-01] MED LIST changes: +LIDOCAINE 1% PF 2 ML VIAL.; +LIDOCAINE 2% PF Vial for OR 5 ML VIAL.
== END | disposition home or self-care (01) ==
LOC: PNCL 12:40
DX: M51.16 Intervertebral disc disorders with radiculopathy, lumbar region (principal); M47.817 Spondylosis without myelopathy or radiculopathy, lumbosacral region; E78.00 Pure hypercholesterolemia, unspecified; Z86.010 Personal history of colon polyps; Z90.49 Acquired absence of other specified parts of digestive tract; K21.9 Gastro-esophageal reflux disease without esophagitis; Z90.710 Acquired absence of both cervix and uterus; Z87.440 Personal history of urinary (tract) infections; M19.90 Unspecified osteoarthritis, unspecified site; E11.9 Type 2 diabetes mellitus without complications; E03.9 Hypothyroidism, unspecified; F17.200 Nicotine dependence, unspecified, uncomplicated; D64.9 Anemia, unspecified; Z80.1 Family history of malignant neoplasm of trachea, bronchus and lung; Z83.3 Family history of diabetes mellitus; Z82.49 Family history of ischemic heart disease and other diseases of the circulatory system
CPT/HCPCS: 64635; 64636; J1030; J1040; J3490; Q9965

== ENCOUNTER → 2019-03-17 | Outpatient (CLI) | payer MEDICARE ==
[2017-09-24 12:58] VITALS: BP 129/57
[~2019-03-17] MED LIST changes: -BUPIVACAINE MPF 0.25% 10 ML VIAL.; +CHOL500016 PO; +CIPR500T94 PO; +CYAN-25 PO; +DOCU-109 PO; +ESOM20CA PO; +GABA-585 PO; +GLIM4TAB2 PO; +HYDR2TAB31 PO; +IBUP-1060 PO; +INSU300I SQ; -IOHEXOL 180 MG/ML 10 ML VIAL.; +LEVO100T5 PO; -LIDOCAINE 1% PF 2 ML VIAL.; -LIDOCAINE 2% PF Vial for OR 5 ML VIAL.; +LISI1TAB7 PO; +METF10007 PO; +METH4TAB2 PO; +OMEP20CA10 PO; +OXYC1TAB19 PO; +POLY17PO29 PO; +SIMV40TA3 PO; +SITA100T PO; +SITA1TAB11 PO; -methylPREDNISolone ACETATE 40 MG/ML VIAL.; -methylPREDNISolone ACETATE 80 MG/ML VIAL.
--- NOTE | 2019-03-17 14:17 | KCIC ---
LUMBAR SPINE WO CONTRAST History: Chronic back pain. Worse when walking. Technique: Multiplanar, multi sequential MR imaging was performed of the lumbar spine. Comparison: Lumbar myelogram September 24, 2017. MRI lumbar spine May 30, 2017. Findings: Grade 1 anterolisthesis L4 on L5 . Normal vertebral body height. No fracture. Multilevel degenerative endplate changes L1-L2, L2-L3 and L3-L4. Conus terminates at the normal location. No evidence of nerve root clumping. T12-L1: Small posterior disc bulge. No canal or neuroforaminal narrowing. L1-L2: Disc height loss. Posterior disc bulge eccentric to the left. No canal narrowing. Mild facet arthropathy. Minimal left neuroforaminal narrowing. L2-L3: Disc height loss. Broad-based disc bulge. Moderate facet arthropathy. Mild subarticular recess narrowing. Mild canal narrowing. Mild bilateral neural foraminal narrowing. L3-L4: Severe disc height loss. Broad-based disc bulge. Left subarticular disc extrusion extending inferiorly. Left subarticular recess narrowing with displacement of the descending left L4 nerve root. Moderate facet arthropathy. Moderate left neural foraminal narrowing with abutment of the exiting left L3 nerve root. L4-L5: Grade 1 anterolisthesis. Disc uncovering. Disc extrusion extending slightly superiorly. No canal narrowing. Moderate bilateral facet arthropathy. Bilateral facet joint effusions. Mild right neuroforaminal narrowing. L5-S1: Small posterior disc bulge. Moderate facet arthropathy. Bilateral facet joint effusions. No canal narrowing. No neural foraminal narrowing Impression: 1. Increased L3-L4 left subarticular disc extrusion extending inferiorly contacting and displacing the descending left L4 nerve root. Recommend correlation radiculopathy. 2. Increased left L3-L4 neural foraminal narrowing with abutment of the exiting left L3 nerve root. Correlate for radiculopathy. 3. Grade 1 anterolisthesis L4 on L5, unchanged. 4. Additional multilevel lumbar spondylosis with degenerative endplate edema. Electronically signed by: Corey Gibson DO (03/17/2019 2:14 PM) [facility]
== END | disposition home or self-care (01) ==
LOC: KCIC MRI 12:10
PROVIDERS: ATTEND Family Medicine
DX: M51.26 Other intervertebral disc displacement, lumbar region (principal); M47.816 Spondylosis without myelopathy or radiculopathy, lumbar region; M48.061 Spinal stenosis, lumbar region without neurogenic claudication; M25.48 Effusion, other site; M12.88 Other specific arthropathies, not elsewhere classified, other specified site; G89.29 Other chronic pain
CPT/HCPCS: 72148

== ENCOUNTER → 2019-08-11 | Outpatient (CLI) | payer MEDICARE ==
[2017-09-24 12:58] VITALS: BP 129/57
[~2019-08-11] MED LIST changes: -GLIM4TAB2 PO; +GLIM4TAB4 PO; +LISI1TAB20 PO; -LISI1TAB7 PO; +OMEP-229 PO; -OMEP20CA10 PO; +SIMV40TA18 PO; -SIMV40TA3 PO
--- NOTE | 2019-08-11 14:22 | CARD ---
MR#: [id number] Date of Study: 08/11/2019 Ordering Physician: HARESH NATION, Referring Physician: HARESH NATION, Tech: Sylvie Ambriz KARL APPROVED REPORT EXAM: Two-dimensional and M-mode echocardiogram with Doppler and color Doppler. Other Information Quality : Technically LimitedHR: 65bpm Rhythm : NSRTechnically limited study due to body habitus. INDICATION Murmur 2D DIMENSIONS RVDd3.2 (2.9-3.5cm)Left Atrium(2D)3.6 (1.6-4.0cm) IVSd1.2 (0.7-1.1cm)Aortic Root(2D)2.5 (2.0-3.7cm) LVDd3.5 (3.9-5.9cm)LVOT Diameter2.0 (1.8-2.4cm) PWd1.2 (0.7-1.1cm)LVDs2.4 (2.5-4.0cm) FS (%) 32.7 %SV32.4 ml LVEF(%)62.2 (>50%) M-Mode DIMENSIONS Left Atrium(MM)3.57 (2.5-4.0cm)Aortic Root2.74 (2.2-3.7cm) Aortic Valve AoV Peak Ananda.153.9cm/sAoV VTI29.8cm AO Peak GR.9.5mmHgLVOT Peak Ananda.101.2cm/s AO Mean GR.5mmHgAVA (VMAX)2.10cm2 LUCIE (VTI)2.20cm2 Mitral Valve MV E Uhtrpsrz36.0cm/sMV DECEL IRHB164kx MV A Rpsduioh935.8cm/sE/A Ratio0.7 Pulmonary Valve PV Peak Nalgyvdi29.5cm/s Tricuspid Valve TR P. Kkfrannj961xo/sRAP GBKJBIZT4ibHp TR Peak Gr.46fiWwBFUW43kfVv Pulmonary Vein S1 Qecdidbn85.9cm/sD2 Jjblbjva27.7cm/s LEFT VENTRICLE The left ventricle is normal size. There is mild concentric left ventricular hypertrophy. The left ve ntricular systolic function is normal and the ejection fraction is within normal range. The Ejection Fraction is 60-65%. There is normal LV segmental wall motion. Transmitral Doppler flow pattern is Gra de I-abnormal relaxation pattern. RIGHT VENTRICLE The right ventricle is normal size. There is normal right ventricular wall thickness. The right ventr icular systolic function is normal. ATRIA The left atrium size is normal. The right atrium size is normal. The interatrial septum is intact wit h no evidence for an atrial septal defect or patent foramen ovale as noted on 2-D or Doppler imaging. AORTIC VALVE The aortic valve is normal in structure and function. The aortic valve is trileaflet. Doppler and Col or Flow revealed no significant aortic regurgitation. There is no significant aortic valvular stenosi s. MITRAL VALVE Mitral annular calcification is mild. There is no evidence of mitral valve prolapse. There is no mitr al valve stenosis. Doppler and Color-flow revealed trace mitral regurgitation. TRICUSPID VALVE The tricuspid valve is normal in structure and function. Doppler and Color Flow revealed trace tricus pid regurgitation. The PA pressure was estimated at 32 mmHg. There is no tricuspid valve prolapse or vegetation. There is no tricuspid valve stenosis. PULMONIC VALVE The pulmonic valve is not well visualized. GREAT VESSELS The aortic root is normal in size. The ascending aorta is normal in size. The IVC is normal in size a nd collapses >50% with inspiration. PERICARDIAL EFFUSION There is no evidence of significant pericardial effusion. Critical Notification Critical Value: No <Conclusion> The left ventricle is normal size. The left ventricular systolic function is normal and the ejection fraction is within normal range. The Ejection Fraction is 60-65%. There is mild concentric left ventricular hypertrophy. Doppler and Color Flow revealed no significant aortic regurgitation. There is no significant aortic valvular stenosis. Doppler and Color-flow revealed trace mitral regurgitation. Doppler and Color Flow revealed trace tricuspid regurgitation. The PA pressure was estimated at 32 mmHg. Signed by : Haresh Nation MD Electronically Approved : 08/11/2019 14:22:10
== END | disposition home or self-care (01) ==
LOC: ECHO 12:49
PROVIDERS: ATTEND Internal Medicine Cardiovascular Disease
DX: Z01.818 Encounter for other preprocedural examination (principal); I34.8 Other nonrheumatic mitral valve disorders; I51.7 Cardiomegaly
CPT/HCPCS: 93306

== ENCOUNTER → 2019-09-15 | Outpatient (CLI) | payer MEDICARE ==
[2017-09-24 12:58] VITALS: BP 129/57
[~2019-09-15] MED LIST changes: +ASPI81TA50 PO; +CHOL200078 PO; -GLIM4TAB4 PO; +GLIM4TAB8 PO; +HYDR-2763 PO; +HYDR200T71 PO; +LISI1TAB19 PO; +MELO15TA23 PO; -OMEP-229 PO; +OMEP20CA16 PO
[2019-09-15 12:01] LABS: BASO % 1 % (0-3); EOS # 0.1 x10^3/uL (0.0-0.7); EOS % 1 % (0-3); LYMPH # 1.9 x10^3/uL (1.0-4.8); LYMPH % 35 % (24-48); MEAN CORPUSCULAR HEMOGLOBIN 30 pg (25-35); MEAN CORPUSCULAR HGB CONC 33 g/dL (31-37); MEAN CORPUSCULAR VOLUME 89 fL (79-100); MONO # 0.6 x10^3/uL (0.0-1.1); MONO % 11 % (0-9); NEUT # 2.9 x10^3/uL (1.8-7.7); NEUT % 53 % (31-73); PLATELET COUNT 152 x10^3/uL (140-400); RED BLOOD COUNT 4.03 x10^6/uL (3.50-5.40); RED CELL DISTRIBUTION WIDTH 14.2 % (11.5-14.5); WHITE BLOOD COUNT 5.5 x10^3/uL (4.0-11.0)
[2019-09-15 12:15] LABS: ALBUMIN 3.6 g/dL (3.4-5.0); ALBUMIN/GLOBULIN RATIO 1.2 (1.0-1.7); CALCIUM 9.3 mg/dL (8.5-10.1); GFR 53.8; POTASSIUM 4.4 mmol/L (3.5-5.1); TOTAL BILIRUBIN 0.3 mg/dL (0.2-1.0); TOTAL PROTEIN 6.6 g/dL (6.4-8.2)
[2019-09-15 12:24] LABS: PROTHROMBIN TIME PATIENT 12.6 SEC (11.7-14.0)
--- NOTE | 2019-09-19 16:02 | HP ---
ADMIT DATE: Daron Andrade dictating for Dr. Chau Wallace PREOPERATIVE HISTORY AND PHYSICAL DATE OF SURGERY: 09/22/2019. HISTORY OF PRESENT ILLNESS: The patient is a pleasant 79-year-old who has and continues to have significant low back pain along with pain into her left hip and left buttock. This pain increases when she walks markedly. She has tried physical therapy and does not notice any improvement. She must ambulate with a cane. Layton does help her. She has tried 10 physical therapy sessions. She says these did not help her whatsoever. PAST MEDICAL HISTORY: Arthritis, heart murmur, diabetes. PAST SURGICAL HISTORY: Partial hysterectomy, cholecystectomy, and colon surgery. FAMILY HISTORY: Diabetes. SOCIAL HISTORY: Retired. . Quit smoking greater than 20 years ago. Drinks alcohol 1-2 times per year. ALLERGIES: No known drug allergies. CURRENT MEDICATIONS: Layton, gabapentin, glimepiride, Janumet, levothyroxine, metformin, simvastatin, aspirin, vitamin D, meloxicam, Plaquenil. REVIEW OF SYSTEMS: A 12-point review of systems was obtained and is noncontributory except for that mentioned above. NEUROSURGERY EXAMINATION: GENERAL APPEARANCE: Alert, pleasant, in no acute distress. HEAD: Normocephalic and atraumatic. SKIN: Warm and dry. MUSCULOSKELETAL: Lumbar paraspinal muscle bulk is normal, restricted range of motion of the lumbar spine, juif-bc-fstavyin tenderness of the lower lumbar spine with palpation, normal range of motion of the lower extremities bilaterally. EXTREMITIES: No clubbing, cyanosis, or edema. NEUROLOGIC: Alert and oriented x 3, normal recent and remote memory, strength 5/5 in bilateral lower extremities, sensory was intact to light touch in the lower extremities bilaterally, reflexes were present and symmetric in bilateral lower extremities, negative straight leg raising bilaterally, ambulates with a cane. IMAGING: I reviewed a lumbar MRI and there is a left-sided herniated disk at L3-L4 with inferior fragment combined with significant left neural foraminal narrowing at that level. At L4-L5, there is a grade 1 anterolisthesis with definite evidence of motion on flexion and extension films. ASSESSMENT: 1. Intervertebral disk disorders with radiculopathy, lumbar region. 2. Spondylolisthesis, lumbar region. 3. Low back pain. PLAN: At this point, the most prudent solution would be to perform a diskectomy with transforaminal decompression at L3-L4 on the left. It would require a considerable inferior bone work to remove the inferior fragment at L3-L4. Additionally, because of the spondylolisthesis at L4-L5, I would place posterior instrumentation L3-L4, L4-L5 bilaterally along with posterolateral fusion. The patient understands the risks of the operation as well as the expected postoperative course. She would like to proceed with surgery. We will make the arrangements. CHAU WALLACE MD DR: DORA/timothy JOB#: [id number] / [id number]
== END | disposition home or self-care (01) ==
LOC: SURGPAT 10:27
PROVIDERS: ATTEND Neurological Surgery
DX: Z01.818 Encounter for other preprocedural examination (principal); M51.16 Intervertebral disc disorders with radiculopathy, lumbar region; M43.16 Spondylolisthesis, lumbar region
CPT/HCPCS: 36415; 80053; 85025; 85610; 85730; 87641

== ENCOUNTER 2019-09-22 05:49 | Inpatient (IN) | payer MEDICARE ==
[2019-09-22] VITALS (8 sets, daily range): BP systolic 103–118; BP diastolic 46–60
[~2019-09-22] VITALS: Ht 162.6 cm; Wt 91.6 kg
[2019-09-22] MEDS ORDERED: BACITRACIN 50,000 UNIT in IV NORMAL SALINE 1000ML BAG 1,000 ML IRR ONE (06:00)
[2019-09-22] MEDS: IV RINGERS,LACTATED 1000ML 1,000 ML IV SCH (06:38)
[2019-09-22] MEDS: INSULIN LISPRO 100 UNIT/ML 3ML VIAL for OP,RR ONLY. SQ PRN ×2 (06:44→15:24)
[2019-09-22] MEDS ORDERED: GELATIN SPONGE SIZE 100. ONE (07:33)
[2019-09-22] MEDS ORDERED: BUPIVACAINE MPF 0.5% 30 ML VIAL. ONE (07:33)
[2019-09-22] MEDS ORDERED: THROMBIN TOPICAL 20,000 UNIT SPRAY.SYRN KIT TP ONE (07:33)
[2019-09-22] MEDS ORDERED: BUPIVACAINE-EPI 0.5%-1:200000 MPF 30 ML VIAL. ONE (07:34)
[2019-09-22] MEDS ORDERED: KETOROLAC 60 MG/2 ML VIAL. ONE (07:39)
[2019-09-22] MEDS ORDERED: PHENYLEPHRINE 10 MG/ML VIAL. ONE (08:11)
[2019-09-22] MEDS ORDERED: ROCURONIUM 50 MG/5 ML VIAL. ONE (08:11)
[2019-09-22] MEDS ORDERED: LIDOCAINE 2% PF 5 ML VIAL. ONE (08:11)
[2019-09-22] MEDS ORDERED: 0.9 % SODIUM CHLORIDE 20 ML VIAL. IJ ONE ×2 (08:11→13:10)
[2019-09-22] MEDS ORDERED: PROPOFOL 20 ML IV ONE (08:11)
[2019-09-22] MEDS ORDERED: PROPOFOL 50 ML IV ONE (08:11)
[2019-09-22] MEDS ORDERED: GLYCOPYRROLATE 1 MG/5 ML VIAL. ONE (08:11)
[2019-09-22] MEDS ORDERED: DEXAMETHASONE SOD PHOS 4 MG/ML VIAL ONE (08:11)
[2019-09-22] MEDS ORDERED: REMIFENTANIL 2 MG VIAL. IV ONE (08:11)
[2019-09-22] MEDS ORDERED: MINERAL OIL/PETROLATUM,WHITE OPHTH OINT 3.5GM TUBE. ONE (08:11)
[2019-09-22] MEDS ORDERED: ONDANSETRON PF 4 MG/2 ML VIAL. ONE (08:11)
[2019-09-22] MEDS ORDERED: DESFLURANE > 120 MINUTES IH ONE (08:30)
[2019-09-22] MEDS ORDERED: ePHEDrine PF IN SALINE 50 MG/10 ML SYRINGE. IV ONE (11:27)
[2019-09-22] MEDS ORDERED: REMIFENTANIL 1 MG VIAL. IV ONE (12:18)
[2019-09-22] MEDS ORDERED: ceFAZolin SODIUM IV Push 1 GM VIAL. IVP ONE ×2 (13:10→13:15)
[2019-09-22] MEDS ORDERED: fentaNYL PF VIAL 100 MCG/2 ML VIAL ONE (14:00)
[2019-09-22] MEDS: fentaNYL PF VIAL 100 MCG/2 ML VIAL IV PRN ×4 (14:15→15:45)
[2019-09-22] MEDS ORDERED: diphenhydrAMINE HCL 25 MG CAPSULE PO PRN (14:30)
[2019-09-22] MEDS ORDERED: POLYETHYLENE GLYCOL 3350 17 GM PACKET. PO PRN (14:30)
[2019-09-22] MEDS ORDERED: NALOXONE 0.4 MG/ML VIAL. IV PRN (14:30)
[2019-09-22] MEDS ORDERED: DEXTROSE 50% 25 GM / 50ML DISP.SYRIN. IV PRN (14:30)
[2019-09-22] MEDS ORDERED: MAGNESIUM HYDROXIDE 2,400 MG/30 ML ORAL.SUSP. PO PRN (14:30)
[2019-09-22] MEDS ORDERED: ACETAMINOPHEN 325 MG TABLET. PO PRN (14:30)
[2019-09-22] MEDS ORDERED: 0.9 % SODIUM CHLORIDE 10 ML DISP.SYRIN. IV PRN (14:30)
[2019-09-22] MEDS ORDERED: IV DEXTROSE 5% 250 ML BAG. IV PRN (14:30)
[2019-09-22] MEDS ORDERED: CALCIUM CARBONATE 500 MG TAB.CHEW PO PRN (14:30)
[2019-09-22] MEDS ORDERED: METHOCARBAMOL 750 MG TABLET PO PRN (14:30)
[2019-09-22] MEDS ORDERED: MAG HYDROX/ALUMINUM HYD/SIMETH 30 ML ORAL.SUSP PO PRN (14:30)
[2019-09-22] MEDS: fentaNYL PF VIAL 100 MCG/2 ML VIAL IVP PRN ×2 (14:48→18:27)
[2019-09-22] MEDS ORDERED: IV RINGERS,LACTATED 1000ML 1,000 ML IV SCH (15:38)
[2019-09-22] MEDS ORDERED: fentaNYL PF VIAL 100 MCG/2 ML VIAL IVP PRN (15:45)
[2019-09-22] MEDS ORDERED: fentaNYL PF VIAL 100 MCG/2 ML VIAL IV PRN (15:45)
[2019-09-22] MEDS ORDERED: MORPHINE SULFATE 2 MG/ML VIAL. IV PRN (15:45)
[2019-09-22] MEDS ORDERED: PROCHLORPERAZINE 10 MG/2 ML VIAL. IV PRN (15:45)
[2019-09-22] MEDS ORDERED: HYDROmorphone 2 MG/ML VIAL IV PRN (15:45)
--- NOTE | 2019-09-22 15:52 | RAD ---
CT study lumbar spine without contrast Clinical indications: Chronic back pain. History of disc extrusion. COMPARISON: Lumbar spine MRI study dated March 17, 2019. TECHNIQUE: Noncontrast helical CT scanning of the lumbar spine was performed. Multiplanar 2-D reconstructions were generated. PQRS compliance Statement One or more of the following individualized dose reduction techniques were utilized for this study: 1. Automated exposure control 2. Adjustment of the mA and/or kV according to patient size 3. Use of iterative reconstruction technique FINDINGS: No compression fracture or discitis or lytic process is evident. Grade 1 anterolisthesis of L4-5 secondary to facet arthropathy. No spondylolysis is seen. Degenerative disc space narrowing and endplate spurring is seen at L1-2 and L2-3 and L3-4 and to lesser extent L4-5. T12-L1: no focal disc protrusion or spinal canal stenosis or neural foraminal narrowing is seen. L1-L2: Mild diffuse disc protrusion is seen. No significant spinal canal stenosis or neural foraminal narrowing is seen. L2-L3: There is mild degenerative endplate spurring and moderate diffuse disc protrusion including protrusion of vacuum disc material. Mild retrolisthesis is seen. Facet arthropathy is evident. These findings combine to form a mild spinal canal stenosis. Mild narrowing of the left neural foramen is seen. These findings were seen previously. L3-L4: Mild retrolisthesis is seen. Mild degenerative endplate spurring and diffuse disc protrusion is seen. This is more prominent on the left side with moderate narrowing of the left neural foramen. Right neural foramen is not significantly narrowed. There is facet arthropathy and ligamentum flavum hypertrophy. These findings combine to form a mild spinal canal stenosis. There is inferior extrusion of vacuum disc material on the left side behind the superior endplate of L4. This could potentially impinge the descending left L4 nerve root. These findings were seen previously. L4-L5: There is mild degenerative endplate spurring and moderate diffuse disc protrusion extends into the inferior aspect of the neural foramina bilaterally. This is more prominent on the right side. There is moderate of the right neural foramen and mild narrowing of the left neural foramina. Degenerative facet arthropathy is evident. These findings combine to form a mild spinal canal stenosis. These findings are unchanged. L5-S1: Mild degenerative endplate spurring and mild diffuse disc protrusion is seen. No significant spinal canal stenosis or neural foraminal narrowing is evident. IMPRESSION: Grade 1 anterolisthesis of L4-5 secondary to degenerative facet arthropathy which is stable from the prior study. Spinal canal stenosis is mild at this level. Focal disc extrusion with inferior migration at L3-4 which may impinge the descending left L4 nerve root. This was seen previously and is unchanged. Mild spinal canal stenosis at this level. Mild spinal canal stenosis at L2-3. Electronically signed by: Cameron Mclean MD (09/22/2019 2:18 PM) [facility]
[2019-09-22] MEDS: LISINOPRIL 20 MG TABLET PO SCH (16:00)
[2019-09-22] MEDS: hydroCHLOROthiazide 12.5 MG CAPSULE PO SCH (16:00)
[2019-09-22] MEDS: PANTOPRAZOLE 40 MG TABLET.DR. PO SCH (16:30)
[2019-09-22] MEDS: GLIMEPIRIDE 2 MG TABLET. PO SCH (16:49)
[2019-09-22] MEDS: LINAGLIPTIN 5 MG TABLET PO SCH (16:49)
[2019-09-22] MEDS: HYDROXYCHLOROQUINE 200 MG TABLET PO SCH (16:50)
[2019-09-22] MEDS: oxyCODONE/APAP 5/325 1 TAB TABLET PO PRN ×2 (16:55→20:58)
[2019-09-22] MEDS: ceFAZolin SODIUM IV Push 1 GM VIAL. IVP SCH (17:20)
--- NOTE | 2019-09-22 17:58 | OP ---
DATE OF SURGERY: 09/22/2019 PREOPERATIVE DIAGNOSES: 1. Herniated lumbar disc, L3-L4 left with left lumbar radiculopathy. 2. Spondylolisthesis, L4-L5 with motion on flexion and extension. OPERATIONS PERFORMED: 1. Lumbar left hemilaminotomy with decompression of dura and nerve root with microdiscectomy, L3-L4, left. 2. Posterior instrumentation L3, L4, L5 and posterolateral fusion, L3, L4, L5. The operation was done with BrainLAB guidance, microscopic dissection, fluoroscopy, EMG, SSEP, and triggered EMG. SURGEON: Chau Wallace M.D. ACCOUNTANT CONTROLLER: SUDHEER Jara assisted with the surgery. She assisted with the instrumentation and closure. OPERATIVE INDICATIONS: The patient is a very pleasant 79-year-old who developed intractable back and left leg pain, which failed conservative measures. She has the above-mentioned findings on imaging studies and I recommended lumbar microsurgery. I spoke about the surgery, the risks, technique, and expected postoperative course and she wished to go ahead. DESCRIPTION OF PROCEDURE: Following general endotracheal anesthesia, the patient was positioned prone on Eliseo table. Lumbar region prepped and draped in standard fashion. JOLANTA hose and AV impulse boots were applied for DVT prophylaxis. The microscope was draped. Fluoroscopy was draped and brought into field. Monitoring was established. Ancef 2 grams was given less than 1 hour prior to initiation of the surgery. Iliac pins were placed in the right iliac crest and the BrainLAB system was initialized. At this point, then an incision was made over the L3-L4 interspace. I dissected down through skin and subcutaneous tissue, reflected the paraspinal muscles, placed a [place] microdisk retractor. I brought in the microscope and drilled away a generous hemilaminotomy and then performed a very generous foraminotomy. I grasped and peeled away very thickened and scarred ligamentum flavum, worked laterally and exposed the dura and the exiting L4 root, gently retracted this medially. There was a large soft subligamentous disc herniation. I gently teased this away and removed this in piecemeal, it was partly calcified. Following this, then I explored carefully, the region was very well decompressed. The disc space was collapsed. I irrigated copiously. I removed the microdisk retractor and I extended my incision from L3 through L5. I dissected down and reflected the paraspinal muscles, placed self-retaining retractors and then drilled in the posterior aspect of the pedicle of L3, L4, and L5. On the left side, tapped and then excoriated the transverse processes and lateral facets and aspirated 20 mL of bone marrow. I then placed allograft bone in the left lateral gutter, I placed using the [place] system, 6.5 and 5.5 diameter screws of 40-45 mm in length. These were placed. A 60 mm lucia was placed. The system was torqued. I then went to the right side in a similar fashion, drilled the posterior aspect of the pedicles of L3, L4, and L5. I passed the black ball, followed by ball tip probe, followed by tap, followed by screw placement. As I did at every opening, there was never any untoward finding with the electrophysiologic monitoring. I did excoriate the transverse processes and lateral facets and placed allograft bone, mixed with bone marrow in the right lateral gutter. Then, I placed a 60 mm lucia and torqued the system. Following this, then I irrigated copiously with antibiotic solution. I closed the wound in layers with absorbable suture. The skin was closed with 4-0 subcuticular stitch. I felt the surgery went very well. CHAU WALLACE MD DR: DORA/timothy JOB#: [id number] / [id number] GWENDOLYN
[2019-09-22] MEDS: POTASSIUM CL 20MEQ-0.45% NACL 1,000 ML IV SCH (20:00)
[2019-09-22] MEDS: GABAPENTIN 100 MG CAPSULE. PO SCH (20:57)
[2019-09-22] MEDS: metFORMIN 500 MG TABLET PO SCH (20:57)
[2019-09-22] MEDS: DOCUSATE SODIUM 100 MG CAPSULE. PO SCH (20:57)
[2019-09-22] MEDS: SIMVASTATIN 40 MG TABLET. PO SCH (20:58)
[2019-09-22] MEDS: INSULIN GLARGINE SYRINGE. SQ SCH (21:00)
[2019-09-23] VITALS (7 sets, daily range): BP systolic 97–135; BP diastolic 41–58
[2019-09-23] MEDS: ceFAZolin SODIUM IV Push 1 GM VIAL. IVP SCH ×2 (01:19→08:23)
[2019-09-23] MEDS: oxyCODONE/APAP 5/325 1 TAB TABLET PO PRN ×5 (01:19→19:48)
[2019-09-23] MEDS: IV RINGERS,LACTATED 1000ML 1,000 ML IV SCH ×2 (01:27→02:45)
[2019-09-23] MEDS: POTASSIUM CL 20MEQ-0.45% NACL 1,000 ML IV SCH ×2 (01:27→19:00)
--- NOTE | 2019-09-23 03:10 | NUR ---
VS stable. Patient denies pain. Patient has not voided since 325cc in PACU as per report. Patient ambulated to restroom with x 1 assistance and gait belt. Patient attempting to void. Dressing with large amount blood noted and dripped onto floor from gluteal fold on way to restroom. Dressing reinforced with ABD and medi pore tape. Patient requesting to sit awhile and try to void.
--- NOTE | 2019-09-23 04:00 | NUR ---
Patient assisted back to bed as she was unable to void. Bladder scan performed and revealed >320 and >421 per scanner. Patient request to drink more fluids at this time. Patient denies discomfort. Patient states "I went all night before surgery and couldn't sleep." Will monitor.
--- NOTE | 2019-09-23 04:52 | NUR ---
Patient was unable to void and bladder scan revealed >421cc. At 0435 Straight catheter inserted post dagmar care, using sterile technique. immediate return of clear yellow urine return. At 0449 urine stopped draining and catheter removed 400 cc clear yellow urine returned. Patient tolerated procedure without and c/o discomfort/pain.
[2019-09-23] MEDS: LEVOTHYROXINE 100 MCG TABLET PO SCH (06:28)
[2019-09-23] MEDS: PANTOPRAZOLE 40 MG TABLET.DR. PO SCH (06:28)
[2019-09-23] MEDS: ASPIRIN ENTERIC COATED 81 MG TABLET.DR. PO SCH (08:23)
[2019-09-23] MEDS: DOCUSATE SODIUM 100 MG CAPSULE. PO SCH ×2 (08:23→20:44)
[2019-09-23] MEDS: HYDROXYCHLOROQUINE 200 MG TABLET PO SCH (08:24)
[2019-09-23] MEDS: GLIMEPIRIDE 2 MG TABLET. PO SCH (08:24)
[2019-09-23] MEDS: CHOLECALCIFEROL (VITAMIN D3) 1,000 UNIT TABLET PO SCH (08:25)
[2019-09-23] MEDS: CYANOCOBALAMIN (VITAMIN B-12) 1,000 MCG TABLET. PO SCH (08:25)
[2019-09-23] MEDS: LINAGLIPTIN 5 MG TABLET PO SCH (08:25)
--- NOTE | 2019-09-23 10:21 | NUR ---
Ambulated to bathroom with no success. Return to chair. Encourage to drink lots fluids. Verbalized understanding. Visiting with family. Cont. monitor.
--- NOTE | 2019-09-23 10:38 | OP ---
DATE OF SURGERY: 09/22/2019 PREOPERATIVE DIAGNOSES: 1. Herniated lumbar disk, L3-L4 left with left lumbar radiculopathy. 2. Spondylolisthesis, L4-L5 with motion on flexion and extension. OPERATIONS PERFORMED: 1. Lumbar left hemilaminotomy with decompression of dura and nerve root with microdiskectomy, L3-L4, left. 2. Posterior instrumentation L3, L4, L5 and posterolateral fusion, L3, L4, L5. The operation was done with BrainLAB guidance, microscopic dissection, fluoroscopy, EMG, SSEP, and triggered EMG. SENIOR HR BUSINESS PARTNER: SUDHEER Jara assisted with the surgery. She assisted with the instrumentation and closure. OPERATIVE INDICATIONS: The patient is a very pleasant 79-year-old who developed intractable back and left leg pain, which failed conservative measures. She has the above-mentioned findings on imaging studies and I recommended lumbar microsurgery. I spoke about the surgery, the risks, technique, and expected postoperative course and she wished to go ahead. DESCRIPTION OF PROCEDURE: Following general endotracheal anesthesia, the patient was positioned prone on Eliseo table. Lumbar region prepped and draped in standard fashion. JOLANTA hose and AV impulse boots were applied for DVT prophylaxis. The microscope was draped. Fluoroscopy was draped and brought into field. Monitoring was established. Ancef 2 grams was given less than 1 hour prior to initiation of the surgery. Iliac pins were placed in the right iliac crest and the BrainLAB system was initialized. At this point, then an incision was made over the L3-L4 interspace. I dissected down through skin and subcutaneous tissue, reflected the paraspinal muscles, placed a [place] microdisk retractor. I brought in the microscope and drilled away. I did generous hemilaminotomy and then performed a very generous foraminotomy. I grasped and peeled away very thickened and scarred ligamentum flavum, worked laterally and exposed the dura and the exiting L4 root, gently retracted this medially. There was a large soft subligamentous disk herniation. I gently teased this away and removed this in piecemeal, it was partly calcified. Following this, then I explored carefully, the region was very well decompressed. The disk space was collapsed. I irrigated copiously. I removed the microdisk retractor and I extended my incision from L3 through L5. I dissected down and reflected the paraspinal muscles, placed self-retaining retractors and then drilled in the posterior aspect of the pedicle of L3, L4, and L5. On the left side, tapped and then excoriated the transverse processes and lateral facets and aspirated 20 mL of bone marrow. I then placed allograft bone in the left lateral gutter, I placed using the [employer] system, 6.5 and 5.5 diameter screws of 40-45 mm in length. These were placed. A 60 mm lucia was placed. The system was torqued. I then went to the right side in a similar fashion, drilled the posterior aspect of the pedicles of L3, L4, and L5. I passed the black ball, followed by ball tip probe, followed by tap, followed by screw placement. As I did at every opening, there was never any untoward finding with the electrophysiologic monitoring. I did excoriate the transverse processes and lateral facets and placed allograft bone, mixed with bone marrow in the right lateral gutter. Then, I placed a 60 mm lucia and torqued the system. Following this, then I irrigated copiously with antibiotic solution. I closed the wound in layers with absorbable suture. Skin was closed with 4-0 subcuticular stitch. I felt the surgery went very well. FIDEL WALLACE MD DR: DORA/timothy JOB#: [id number] / [id number]
--- NOTE | 2019-09-23 10:41 | HP ---
ADMIT DATE: 09/22/2019. PREOPERATIVE HISTORY AND PHYSICAL DATE OF SURGERY: 09/22/2019. HISTORY OF PRESENT ILLNESS: The patient is a pleasant 79-year-old who has and continues to have significant low back pain along with pain into her left hip and left buttock. This pain increases when she walks markedly. She has tried physical therapy and does not notice any improvement. She must ambulate with a cane. Breese does help her. She has tried 10 physical therapy sessions. She says these did not help her. PAST MEDICAL HISTORY: Arthritis, heart murmur, diabetes. PAST SURGICAL HISTORY: Partial hysterectomy, cholecystectomy, and colon surgery. FAMILY HISTORY: Diabetes. SOCIAL HISTORY: Retired. . Quit smoking greater than 20 years ago. Drinks alcohol 1-2 times per year. ALLERGIES: No known drug allergies. CURRENT MEDICATIONS: Breese, gabapentin, glimepiride, Janumet, levothyroxine, metformin, simvastatin, aspirin, vitamin D, meloxicam, Plaquenil. REVIEW OF SYSTEMS: A 12-point review of systems was obtained and is noncontributory except for that mentioned above. NEUROSURGERY EXAMINATION: GENERAL APPEARANCE: Alert, pleasant, in no acute distress. HEAD: Normocephalic and atraumatic. SKIN: Warm and dry. MUSCULOSKELETAL: Lumbar paraspinal muscle bulk is normal, restricted range of motion of the lumbar spine, [id number] tenderness of the lower lumbar spine with palpation, normal range of motion of the lower extremities bilaterally. EXTREMITIES: No clubbing, cyanosis, or edema. NEUROLOGIC: Alert and oriented x 3, normal recent and remote memory, strength 5/5 in bilateral lower extremities, sensory was intact to light touch in the lower extremities bilaterally, reflexes were present and symmetric in bilateral lower extremities, negative straight leg raising bilaterally, ambulates with a cane. IMAGING: I reviewed a lumbar MRI and there is a left-sided herniated disc at L3-L4 with inferior fragment combined with significant left neural foraminal narrowing at that level. At L4-L5, there is a grade 1 anterolisthesis with definite evidence of motion on flexion and extension films. ASSESSMENT/ PLAN: At this point, the most prudent solution would be to perform a discectomy with transforaminal decompression at L3-L4 on the left. It would require a considerable inferior bone work to remove the inferior fragment at L3-L4. Additionally, because of the spondylolisthesis at L4-L5, I would place posterior instrumentation L3-L4, L4-L5 bilaterally along with posterolateral fusion. The patient understands the risks of the operation as well as the expected postoperative course. She would like to proceed with surgery. We will make the arrangements. FIDEL WALLACE MD DR: DORA/timothy JOB#: [id number] / [id number] GWENDOLYN
[2019-09-23] MEDS: LISINOPRIL 20 MG TABLET PO SCH (11:57)
[2019-09-23] MEDS: hydroCHLOROthiazide 12.5 MG CAPSULE PO SCH (11:57)
--- NOTE | 2019-09-23 12:56 | PDOC ---
PROGRESS NOTES Subjective Subjective POD #1 Up in chair back/ incisional pain, controlled with medication required straight cath overnight Objective Objective Vital Signs Date Time Temp Pulse Resp B/P (MAP) Pulse Ox O2 Delivery O2 Flow Rate FiO2 09/23/19 11:58 Room Air 09/23/19 11:57 87 114/46 09/23/19 11:39 98.7 98 98.7 09/23/19 06:32 18 09/23/19 02:19 2.0 Intake and Output 09/23/19 07:00 Intake Total 2400 ml Output Total 875 ml Balance 1525 ml Intake Oral 800 ml IV Total 1600 ml Output Urine Total 725 ml Estimated Blood Loss 150 ml Physical Exam General: Oriented X3, Cooperative, No acute distress MUSCULOSKELETAL: Other (OLSEN) Neuro: Normal speech Skin: Other (dressing C,D,I) Plan Plan of Care encouraged increased activity as tolerated PT Brace likely home tomorrow Comment Review of Relevant I have reviewed the following items carley (where applicable) has been applied. Labs Laboratory Tests Test 09/22/19 06:37 09/22/19 08:12 09/22/19 09:50 09/22/19 10:59 Glucose (Fingerstick) 131 mg/dL (70-99) 70 mg/dL (70-99) 92 mg/dL (70-99) 124 mg/dL (70-99) Test 09/22/19 15:15 09/22/19 16:22 09/22/19 20:56 09/23/19 06:26 Glucose (Fingerstick) 244 mg/dL (70-99) 226 mg/dL (70-99) 252 mg/dL (70-99) 188 mg/dL (70-99) Test 09/23/19 11:02 Glucose (Fingerstick) 162 mg/dL (70-99) Laboratory Tests Test 09/22/19 15:15 09/22/19 16:22 09/22/19 20:56 09/23/19 06:26 Glucose (Fingerstick) 244 mg/dL (70-99) 226 mg/dL (70-99) 252 mg/dL (70-99) 188 mg/dL (70-99) Test 09/23/19 11:02 Glucose (Fingerstick) 162 mg/dL (70-99) Medications Current Medications Bacitracin 11305 unit/Sodium Chloride 1,000 ml @ 1,000 mls/hr 1X ONCE IRR Last administered on 09/22/19 09:51; Start 09/22/19 at 06:00; Stop 09/22/19 at 06:59; Status DC Cefazolin Sodium/ Dextrose 50 ml @ 100 mls/hr 1X ONCE IV Last administered on 09/22/19at 09:23; Start 09/22/19 at 06:00; Stop 09/22/19 at 06:29; Status DC Ringer's Solution 1,000 ml @ 100 mls/hr Q10H IV Last administered on 09/22/19at 06:38; Start 09/22/19 at 06:45; Stop 09/23/19 at 04:44; Status DC Insulin Human Lispro (HumaLOG VIAL for OP,RR ONLY) 0-10 units PRN Q1HR PRN SQ PER PROTOCOL Last administered on 09/22/19at 15:24; Start 09/22/19 at 06:45; Stop 09/23/19 at 06:44; Status DC Gelatin (Gelfoam Size 100) 1 each STK-MED ONCE .ROUTE Last administered on 09/22/19 09:51; Start 09/22/19 at 07:33; Stop 09/22/19 at 07:33; Status DC Bupivacaine HCl (Sensorcaine Mpf 0.5%) 30 ml STK-MED ONCE .ROUTE ; Start 09/22/19 at 07:33; Stop 09/22/19 at 07:34; Status DC Thrombin 20,000 unit STK-MED ONCE TP Last administered on 09/22/19at 09:51; Start 09/22/19 at 07:33; Stop 09/22/19 at 07:34; Status DC Bupivacaine HCl/ Epinephrine Bitart (Sensorcain-Epi 0.5%-1:720375 Mpf) 30 ml STK-MED ONCE .ROUTE Last administered on 09/22/19at 09:51; Start 09/22/19 at 07:34; Stop 09/22/19 at 07:34; Status DC Ketorolac Tromethamine (Toradol Im) 60 mg STK-MED ONCE .ROUTE Last administered on 09/22/19at 09:51; Start 09/22/19 at 07:39; Stop 09/22/19 at 07:40; Status DC Propofol 20 ml @ As Directed STK-MED ONCE IV ; Start 09/22/19 at 08:11; Stop 09/22/19 at 08:11; Status DC Lidocaine HCl (Lidocaine Pf 2% Vial) 5 ml STK-MED ONCE .ROUTE ; Start 09/22/19 at 08:11; Stop 09/22/19 at 08:11; Status DC Ondansetron HCl (Zofran) 4 mg STK-MED ONCE .ROUTE ; Start 09/22/19 at 08:11; Stop 09/22/19 at 08:11; Status DC Phenylephrine HCl (Scar-Synephrine Inj) 10 mg STK-MED ONCE .ROUTE ; Start 09/22/19 at 08:11; Stop 09/22/19 at 08:11; Status DC Propofol 50 ml @ As Directed STK-MED ONCE IV ; Start 09/22/19 at 08:11; Stop 09/22/19 at 08:11; Status DC Multi-Ingred Cream/Lotion/Oil/ Oint (Artificial Tears Eye Ointment) 7 venecia STK- MED ONCE .ROUTE ; Start 09/22/19 at 08:11; Stop 09/22/19 at 08:11; Status DC Sodium Chloride (SODIUM CHLORIDE 20ml) 20 ml STK-MED ONCE IJ ; Start 09/22/19 at 08:11; Stop 09/22/19 at 08:11; Status DC Dexamethasone Sodium Phosphate (Decadron) 4 mg STK-MED ONCE .ROUTE ; Start 09/22/19 at 08:11; Stop 09/22/19 at 08:11; Status DC Rocuronium [place] (Zemuron) 50 mg STK-MED ONCE .ROUTE ; Start 09/22/19 at 08:11; Stop 09/22/19 at 08:11; Status DC Remifentanil HCl (Ultiva) 2 mg STK-MED ONCE IV ; Start 09/22/19 at 08:11; Stop 09/22/19 at 08:11; Status DC Glycopyrrolate (Robinul) 1 mg STK-MED ONCE .ROUTE ; Start 09/22/19 at 08:11; Stop 09/22/19 at 08:11; Status DC Desflurane (Suprane) 90 ml STK-MED ONCE IH ; Start 09/22/19 at 08:30; Stop 09/22/19 at 08:31; Status DC Ephedrine Sulfate (ePHEDrine PF IN SALINE SYRINGE) 50 mg STK-MED ONCE IV ; Start 09/22/19 at 11:27; Stop 09/22/19 at 11:27; Status DC Remifentanil HCl (Ultiva) 1 mg STK-MED ONCE IV ; Start 09/22/19 at 12:18; Stop 09/22/19 at 12:18; Status DC Cefazolin Sodium (Ancef) 1 gm STK-MED ONCE IVP ; Start 09/22/19 at 13:10; Stop 09/22/19 at 13:10; Status DC Sodium Chloride (SODIUM CHLORIDE 20ml) 20 ml STK-MED ONCE IJ ; Start 09/22/19 at 13:10; Stop 09/22/19 at 13:10; Status DC Cefazolin Sodium (Ancef) 2 gm 1X ONCE IVP Last administered on 09/22/19at 13:14; Start 09/22/19 at 13:15; Stop 09/22/19 at 13:19; Status DC Fentanyl Citrate (Fentanyl 2ml Vial) 100 mcg STK-MED ONCE .ROUTE ; Start 09/22/19 at 14:00; Stop 09/22/19 at 14:00; Status DC Aspirin (Ecotrin) 81 mg DAILY PO Last administered on 09/23/19at 08:23; Start 09/23/19 at 09:00 Cyanocobalamin (Vitamin B-12) 1,000 mcg DAILY PO Last administered on 09/23/19at 08:25; Start 09/23/19 at 09:00 Gabapentin (Neurontin) 200 mg HS PO Last administered on 09/22/19at 20:57; Start 09/22/19 at 21:00 Hydroxychloroquine Sulfate (Plaquenil) 400 mg DAILY PO Last administered on 09/23/19at 08:24; Start 09/22/19 at 15:00 Levothyroxine Sodium (Synthroid) 100 mcg DAILY06 PO Last administered on 09/23/19at 06:28; Start 09/23/19 at 06:00 Polyethylene Glycol (miraLAX PACKET) 17 gm PRN DAILY PRN PO CONSTIPATION; Start 09/22/19 at 14:30 Simvastatin (Zocor) 40 mg QHS PO Last administered on 09/22/19at 20:58; Start 09/22/19 at 21:00 Vitamin D (Vitamin D3) 2,000 unit DAILY PO Last administered on 09/23/19at 08:25; Start 09/23/19 at 09:00 Pantoprazole Sodium (Protonix) 40 mg DAILYAC PO Last administered on 09/23/19at 06:28; Start 09/22/19 at 16:30 Glimepiride (Amaryl) 4 mg DAILY PO Last administered on 09/23/19at 08:24; Start 09/22/19 at 15:00 Lisinopril (Prinivil) 20 mg DAILY PO ; Start 09/22/19 at 16:00 Hydrochlorothiazide (Microzide) 12.5 mg DAILY PO ; Start 09/22/19 at 16:00 Metformin HCl (Glucophage) 1,000 mg QHS PO Last administered on 09/22/19at 20: 57; Start 09/22/19 at 21:00 Linagliptin (Tradjenta) 5 mg DAILY PO Last administered on 09/23/19at 08:25; Start 09/22/19 at 16:00 Dextrose (Dextrose 50%-Water Syringe) 12.5 gm PRN Q15MIN PRN IV SEE COMMENTS; Start 09/22/19 at 14:30 Dextrose (Iv Dextrose 5%) 250 ml PRN Q15MIN PRN IV SEE COMMENTS; Start 09/22/19 at 14:30 Fentanyl Citrate (Fentanyl 2ml Vial) 50 mcg PRN Q2HR PRN IVP PAIN Last administered on 09/22/19at 18:27; Start 09/22/19 at 14:30 Acetaminophen (Tylenol) 650 mg PRN Q6HRS PRN PO MILD PAIN / TEMP; Start 09/22/19 at 14:30 Al Hydroxide/Mg Hydroxide (Mylanta Plus Xs) 30 ml PRN Q3HRS PRN PO HEARTBURN / GAS; Start 09/22/19 at 14:30 Calcium Carbonate/ Glycine (Tums) 500 mg PRN Q3HRS PRN PO INDIGESTION; Start 09/22/19 at 14:30 Diphenhydramine HCl (Benadryl) 25 mg PRN Q6HRS PRN PO ITCHING; Start 09/22/19 at 14:30 Naloxone HCl (Narcan) 0.1 mg PRN Q2MIN PRN IV ADMIN; Start 09/22/19 at 14:30 Sodium Chloride (Normal Saline Flush) 3 ml QSHIFT PRN IV AFTER MEDS AND BLOOD DRAWS; Start 09/22/19 at 14:30 Potassium Chloride/Sodium Chloride 1,000 ml @ 75 mls/hr [id number] IV Last administered on 09/23/19at 01:27; Start 09/22/19 at 14:24 Oxycodone/ Acetaminophen (Percocet 5/325) 1 tab PRN Q4HRS PRN PO MILD PAIN, 1ST CHOICE Last administered on 09/23/19at 10:51; Start 09/22/19 at 14:30 Oxycodone/ Acetaminophen (Percocet 5/325) 2 tab PRN Q4HRS PRN PO MODERATE PAIN, SEVERE PAIN Last administered on 09/23/19at 01:19; Start 09/22/19 at 14:30 Methocarbamol (Robaxin) 750 mg PRN TID PRN PO MUSCLE SPASMS Last administered on 09/22/19at 18:28; Start 09/22/19 at 14:30; Stop 09/23/19 at 11:09; Status DC Docusate Sodium (Colace) 100 mg BID PO Last administered on 09/23/19at 08:23; Start 09/22/19 at 21:00 Magnesium Hydroxide (Milk Of Magnesia) 2,400 mg PRN Q12HR PRN PO CONSTIPATION; Start 09/22/19 at 14:30 Cefazolin Sodium (Ancef) 1 gm Q8H IVP Last administered on 09/23/19at 08:23; Start 09/22/19 at 17:00; Stop 09/23/19 at 09:01; Status DC Insulin Glargine (Lantus Syringe) 4 unit QHS SQ Last administered on 09/22/19at 21:00; Start 09/22/19 at 21:00 Fentanyl Citrate (Fentanyl 2ml Vial) 25 mcg PRN Q5MIN PRN IV MILD PAIN 1-3; Start 09/22/19 at 15:45; Stop 09/22/19 at 18:24; Status DC Fentanyl Citrate (Fentanyl 2ml Vial) 50 mcg PRN Q5MIN PRN IV MODERATE TO SEVERE PAIN Last administered on 09/22/19at 15:45; Start 09/22/19 at 15:45; Stop 09/22/19 at 18:24; Status DC Morphine Sulfate (Morphine Sulfate) 1 mg PRN Q10MIN PRN IV SEVERE PAIN 7-10; Start 09/22/19 at 15:45; Stop 09/22/19 at 18:24; Status DC Ringer's Solution 1,000 ml @ 30 mls/hr Q24H IV ; Start 09/22/19 at 15:38; Stop 09/22/19 at 18:24; Status DC Hydromorphone HCl (Dilaudid) 0.5 mg PRN Q10MIN PRN IV SEV PAIN, Second choice; Start 09/22/19 at 15:45; Stop 09/22/19 at 18:24; Status DC Prochlorperazine Edisylate (Compazine) 5 mg PACU PRN PRN IV NAUSEA, MRX1; Start 09/22/19 at 15:45; Stop 09/22/19 at 18:24; Status DC Fentanyl Citrate (Fentanyl 2ml Vial) 25-50mcg q5 min IVP PRN wh... PRN Q5MIN PRN IVP pain; Start 09/22/19 at 15:45; Stop 09/22/19 at 18:24; Status DC Active Scripts Active Miralax (Polyethylene Glycol 3350) 17 Gm Powd.pack 1 Packet PO PRN DAILY PRN Reported Hydrocodone-Acetamin 7.5-325 (Hydrocodone/Acetaminophen) 1 Each Tablet 1 Each PO TID PRN PRN Vitamin D3 (Cholecalciferol (Vitamin D3)) 2,000 Unit Tab.chew 1 Tab PO DAILY 30 Days Plaquenil (Hydroxychloroquine Sulfate) 200 Mg Tablet 400 Mg PO DAILY Meloxicam 15 Mg Tablet 1 Tab PO DAILY 30 Days Lisinopril-Hctz 20-12.5 Mg Tab (Lisinopril/Hydrochlorothiazide) 1 Each Tablet 1 Tab PO DAILY Aspir-Low (Aspirin) 81 Mg Tablet. 1 Tab PO DAILY Vitamin B-12 (Cyanocobalamin (Vitamin B-12)) 1,000 Mcg Tablet 1 Tab PO DAILY Gabapentin (Gabapentin) 100 Mg Capsule 200 Mg PO HS Nexium Capsule (Esomeprazole Magnesium) 20 Mg Capsule. 1 Cap PO DAILY Janumet 50-1,000 Mg Tablet (Sitagliptin Phos/Metformin Hcl) 1 Each Tablet 1 Each PO DAILY Metformin Hcl 1,000 Mg Tablet 1,000 Mg PO HS Glimepiride 4 Mg Tablet 1 Tab PO DAILY Sharad Romeroostar (Insulin Glargine,Hum.rec.anlog) 300 Unit/1 Ml Insuln.pen 5 Unit SQ HS Levothyroxine Sodium 100 Mcg Tablet 1 Tab PO DAILY Simvastatin 40 Mg Tablet 1 Tab PO QHS Vitals/I & O Vital Sign - Last 24 Hours 09/22/19 09/22/19 09/22/19 09/22/19 14:19 14:19 14:35 14:48 Temp 98.6 98.6 98.6 98.6 Pulse 122 112 Resp 17 16 16 B/P (MAP) 141/40 122/28 Pulse Ox 100 96 96 O2 Delivery Simple Mask Mask Simple Mask Nasal Cannula O2 Flow Rate 10 10 10 4.0 09/22/19 09/22/19 09/22/19 09/22/19 14:50 15:00 15:15 15:15 Temp 98.6 98.6 98.6 98.6 98.6 98.6 Pulse 104 102 100 Resp 16 16 16 16 B/P (MAP) 123/61 112/24 110/34 Pulse Ox 100 95 96 96 O2 Delivery Simple Mask Nasal Cannula Nasal Cannula Nasal Cannula O2 Flow Rate 10.0 4 4.0 4 09/22/19 09/22/19 09/22/19 09/22/19 15:30 15:30 15:45 15:45 Temp 98.6 98.6 98.6 98.6 Pulse 104 104 Resp 16 16 16 B/P (MAP) 102/39 101/30 Pulse Ox 96 96 97 O2 Delivery Nasal Cannula Nasal Cannula Nasal Cannula Nasal Cannula O2 Flow Rate 3 3 4.0 3 09/22/19 09/22/19 09/22/19 09/22/19 16:15 16:15 16:30 16:44 Temp 98.2 98.2 98.2 98.2 Pulse 101 113 Resp 16 18 B/P (MAP) 103/49 (67) 105/52 (69) Pulse Ox 96 99 96 O2 Delivery Nasal Cannula Nasal Cannula Room Air Nasal Cannula O2 Flow Rate 2.0 2.0 2.0 09/22/19 09/22/19 09/22/19 09/22/19 16:45 17:19 17:55 18:00 Temp 98.2 98.4 98.2 98.4 Pulse 114 103 98 Resp 18 16 B/P (MAP) 106/55 (72) 113/60 (77) 103/47 (65) Pulse Ox 96 94 94 O2 Delivery Room Air Nasal Cannula Nasal Cannula O2 Flow Rate 2.0 2.0 09/22/19 09/22/19 09/22/19 09/22/19 18:31 18:57 19:33 19:33 Temp 98.0 98.0 Pulse 80 94 Resp 18 18 B/P (MAP) 118/52 (74) 105/48 (67) Pulse Ox 94 97 O2 Delivery Nasal Cannula Nasal Cannula Nasal Cannula O2 Flow Rate 2.0 2.0 2.0 09/22/19 09/22/19 09/22/19 09/23/19 20:58 21:58 23:00 01:19 Temp 98.3 98.3 Pulse 86 Resp 18 14 18 18 B/P (MAP) 112/46 (68) Pulse Ox 97 97 O2 Delivery Nasal Cannula Nasal Cannula Nasal Cannula Nasal Cannula O2 Flow Rate 2.0 2.0 2.0 2.0 09/23/19 09/23/19 09/23/19 09/23/19 02:19 03:10 06:32 08:00 Temp 98.5 98.0 98.5 98.0 Pulse 77 90 Resp 18 18 B/P (MAP) 103/45 (64) 97/41 (59) Pulse Ox 97 97 O2 Delivery Nasal Cannula Room Air Room Air Room Air O2 Flow Rate 2.0 09/23/19 09/23/19 09/23/19 09/23/19 08:20 08:32 09:30 10:51 Pulse 90 B/P (MAP) 111/44 (66) O2 Delivery Room Air Room Air Room Air 09/23/19 09/23/19 09/23/19 11:39 11:57 11:58 Temp 98.7 98.7 Pulse 87 87 B/P (MAP) 114/46 (68) 114/46 Pulse Ox 98 O2 Delivery Room Air Room Air Intake and Output 09/22/19 09/22/19 09/23/19 15:00 23:00 07:00 Intake Total 1600 ml 800 ml Output Total 475 ml 400 ml Balance 1125 ml 400 ml REAGAN FIELDS APRN Sep 23, 2019 12:56
--- NOTE | 2019-09-23 13:02 | DISCH ---
DISCHARGE INSTRUCTIONS Condition on Discharge Condition on Discharge: Stable Activity After Discharge Activity Instructions for Disc: Activity as tolerated, Avoid exertion Bathing Instructions: Shower-keep dressing dry, No Tub Bath until see Lifting Instructions after Dis: No heavy lifting, No pulling or pushing, Do not lift >10 pounds Driving Instructions after Dis: No driving for 2 weeks Diet after Discharge Diet after Discharge: Diabetic No Calorie Level Additional Diet Restrictions: resume home diet Wound Incision Care Wound/Incision Care: Ice to area for comfort Other wound/incision instructi: may remove dressing in 48 hours if dry then may shower, no soaking Checks after Discharge Checks after discharge: Check blood press - daily Contacting the after DC Call your doctor for: Concerns you may have Follow-Up Follow up with: Dr. Wallace's nurse in 2 weeks [phone] FIDEL WALLACE MD Sep 23, 2019 13:02
--- NOTE | 2019-09-23 15:20 | NUR ---
Finally had urge to void. Voided 150cc clear yellow urine. Bladder scan afterwards only had 215cc. Cont. to encourage po fluids.
[2019-09-23] MEDS: SIMVASTATIN 40 MG TABLET. PO SCH (20:44)
[2019-09-23] MEDS: metFORMIN 500 MG TABLET PO SCH (20:45)
[2019-09-23] MEDS: GABAPENTIN 100 MG CAPSULE. PO SCH (20:45)
[2019-09-23] MEDS: INSULIN GLARGINE SYRINGE. SQ SCH (20:48)
[2019-09-24 03:09] VITALS: BP 117/50
[2019-09-24] MEDS: LEVOTHYROXINE 100 MCG TABLET PO SCH (06:03)
[2019-09-24] MEDS: oxyCODONE/APAP 5/325 1 TAB TABLET PO PRN (06:04)
[2019-09-24 06:33] VITALS: BP 134/66
--- NOTE | 2019-09-24 06:48 | NUR ---
pt slept fairly well during the night rating pain between 4-7 on and off sharp pain on the lower back pt had a hardtime getting up in bed to use the commode stated back and legs feel weak need extensive assistance gaitbelt and walker patient denies problem with voiding reenforced dressing on the lower back need encouragement and instruction on how to use the walker stated back felt stiff.
[2019-09-24] MEDS: PANTOPRAZOLE 40 MG TABLET.DR. PO SCH (07:18)
[2019-09-24 07:56] VITALS: BP 125/52
[2019-09-24] MEDS: CHOLECALCIFEROL (VITAMIN D3) 1,000 UNIT TABLET PO SCH (07:59)
[2019-09-24] MEDS: GLIMEPIRIDE 2 MG TABLET. PO SCH (07:59)
[2019-09-24] MEDS: ASPIRIN ENTERIC COATED 81 MG TABLET.DR. PO SCH (07:59)
[2019-09-24] MEDS: CYANOCOBALAMIN (VITAMIN B-12) 1,000 MCG TABLET. PO SCH (07:59)
[2019-09-24] MEDS: LINAGLIPTIN 5 MG TABLET PO SCH (07:59)
[2019-09-24] MEDS: HYDROXYCHLOROQUINE 200 MG TABLET PO SCH (07:59)
[2019-09-24] MEDS: DOCUSATE SODIUM 100 MG CAPSULE. PO SCH ×2 (07:59→20:59)
[2019-09-24] MEDS: LISINOPRIL 20 MG TABLET PO SCH ×2 (08:01→11:03)
[2019-09-24] MEDS: hydroCHLOROthiazide 12.5 MG CAPSULE PO SCH ×2 (08:01→11:03)
[2019-09-24] MEDS: HYDROcodone/APAP 7.5/325MG 1 TAB TABLET PO PRN ×4 (09:53→22:52)
[2019-09-24] MEDS ORDERED: DOCUSATE SODIUM 283 MG/5 ML ENEMA. PR PRN (10:15)
[2019-09-24] MEDS ORDERED: BISACODYL 10 MG SUPP.RECT. PR PRN (10:15)
[2019-09-24 10:56] VITALS: BP 141/66
--- NOTE | 2019-09-24 14:08 | CONS ---
DATE OF CONSULTATION: 09/24/2019 ATTENDING PHYSICIAN: Chau Singer MD REASON FOR CONSULTATION: The patient was seen at the request of Dr. Singer for rehab evaluation. HISTORY OF PRESENT ILLNESS: This is a 79-year-old right-handed female known to me with chronic lower back pain with radiation to her left hip and left buttock. The patient had increased back pain, recently had tried physical therapy without any lasting help. No significant help with narcotics. She had to use a cane and walker. The patient with known degenerative joint disease of her knees, heart murmur, diabetes mellitus, status post partial hysterectomy, cholecystectomy and colon surgery. She had to use a lumbar corset in the past, which she is too big per her right now. The patient received a new lumbar corset postop. She underwent lumbar decompression laminectomy and fusion done on 09/22/2019 for left-sided disk herniation at L3-L4 with significant left neural foraminal narrowing and grade 1 anterolisthesis at L4-L5 with definite evidence of motion on flexion and extension films. The patient postop is participating in physical therapy. She lives alone, had a ramp or stairs. She had a cane and walker at home. She is not known allergic to any medication. She quit smoking about 20 years ago. The patient is having some urinary urgency. She denies any dysuria. She had no bowel movement since 09/20/2019. PHYSICAL EXAMINATION: Today revealed an elderly female. She is alert, oriented to time, place, person and circumstance and follows commands appropriately, moves all 4 extremities voluntarily where she had 4+/5 grade muscle strength. Deep tendon reflexes are 1-2+ and symmetrical with absent right ankle jerk. She had equal perception of touch and pinprick sensation bilaterally. She had crepitus on range of motion of both knee joints, some pain on resist to hip flexion. She requires assistance with bed mobility and transfers. Once up, she can walk using a roller walker, she gets tired easily. She requires help with donning of lumbar corset. She had dressing to her lumbar spine area. Other than that, her skin is intact. ASSESSMENT: Elderly female status post lumbar decompression laminectomy and fusion for treatment of chronic lower back pain with disk herniation at L3-L4 and spondylolisthesis at L4-L5 grade 1, degenerative joint disease of both knees, obesity. RECOMMENDATIONS: Agree with the plan for physical therapy, to ask Occupational Therapy to see her about her self-care to check post-voiding urine residual to make sure she is emptying her bladder completely. To start her on a bowel and bladder training program and hopefully to assisted care unit for continued care at least for a few days before she feels confident to go home as she lives alone. Dr. Singer, I appreciate asking me to participate in the care of this interesting patient. I will be glad to follow her with you on as needed basis. LULI MARIN MD DR: ESME/timothy JOB#: [id number] / [id number]
--- NOTE | 2019-09-24 16:00 | PDOC ---
PROGRESS NOTES Subjective Subjective POD #2 sitting up in bed back/ incisional pain no leg pain Objective Objective Vital Signs Date Time Temp Pulse Resp B/P (MAP) Pulse Ox O2 Delivery O2 Flow Rate FiO2 09/24/19 12:29 Room Air 09/24/19 11:03 96 141/66 09/24/19 10:56 98.6 16 98.6 09/24/19 06:58 94 09/23/19 19:30 2.0 Intake and Output 09/24/19 07:00 Intake Total 1060 ml Output Total 775 ml Balance 285 ml Intake Oral 1060 ml Output Urine Total 775 ml # Voids 1 Physical Exam General: Oriented X3 MUSCULOSKELETAL: Other (OLSEN) Neuro: Normal speech Skin: Other (dressing C,D, I) Plan Plan of Care Encouraged increased activity as tolerated PT/OT Dr. Cool consulted likely will need SNF d/w RN Comment Review of Relevant I have reviewed the following items carley (where applicable) has been applied. Labs Laboratory Tests Test 09/22/19 16:22 09/22/19 20:56 09/23/19 06:26 09/23/19 11:02 Glucose (Fingerstick) 226 mg/dL (70-99) 252 mg/dL (70-99) 188 mg/dL (70-99) 162 mg/dL (70-99) Test 09/23/19 16:47 09/23/19 20:38 09/24/19 06:17 09/24/19 10:58 Glucose (Fingerstick) 254 mg/dL (70-99) 278 mg/dL (70-99) 181 mg/dL (70-99) 263 mg/dL (70-99) Laboratory Tests Test 09/23/19 16:47 09/23/19 20:38 09/24/19 06:17 09/24/19 10:58 Glucose (Fingerstick) 254 mg/dL (70-99) 278 mg/dL (70-99) 181 mg/dL (70-99) 263 mg/dL (70-99) Medications Current Medications Bacitracin 70239 unit/Sodium Chloride 1,000 ml @ 1,000 mls/hr 1X ONCE IRR Last administered on 09/22/19at 09:51; Start 09/22/19 at 06:00; Stop 09/22/19 at 06:59; Status DC Cefazolin Sodium/ Dextrose 50 ml @ 100 mls/hr 1X ONCE IV Last administered on 09/22/19at 09:23; Start 09/22/19 at 06:00; Stop 09/22/19 at 06:29; Status DC Ringer's Solution 1,000 ml @ 100 mls/hr Q10H IV Last administered on 09/22/19at 06:38; Start 09/22/19 at 06:45; Stop 09/23/19 at 04:44; Status DC Insulin Human Lispro (HumaLOG VIAL for OP,RR ONLY) 0-10 units PRN Q1HR PRN SQ PER PROTOCOL Last administered on 09/22/19at 15:24; Start 09/22/19 at 06:45; Stop 09/23/19 at 06:44; Status DC Gelatin (Gelfoam Size 100) 1 each STK-MED ONCE .ROUTE Last administered on 09/22/19at 09:51; Start 09/22/19 at 07:33; Stop 09/22/19 at 07:33; Status DC Bupivacaine HCl (Sensorcaine Mpf 0.5%) 30 ml STK-MED ONCE .ROUTE ; Start 09/22/19 at 07:33; Stop 09/22/19 at 07:34; Status DC Thrombin 20,000 unit STK-MED ONCE TP Last administered on 09/22/19at 09:51; Start 09/22/19 at 07:33; Stop 09/22/19 at 07:34; Status DC Bupivacaine HCl/ Epinephrine Bitart (Sensorcain-Epi 0.5%-1:546885 Mpf) 30 ml STK-MED ONCE .ROUTE Last administered on 09/22/19at 09:51; Start 09/22/19 at 07:34; Stop 09/22/19 at 07:34; Status DC Ketorolac Tromethamine (Toradol Im) 60 mg STK-MED ONCE .ROUTE Last administered on 09/22/19at 09:51; Start 09/22/19 at 07:39; Stop 09/22/19 at 07:40; Status DC Propofol 20 ml @ As Directed STK-MED ONCE IV ; Start 09/22/19 at 08:11; Stop 09/22/19 at 08:11; Status DC Lidocaine HCl (Lidocaine Pf 2% Vial) 5 ml STK-MED ONCE .ROUTE ; Start 09/22/19 at 08:11; Stop 09/22/19 at 08:11; Status DC Ondansetron HCl (Zofran) 4 mg STK-MED ONCE .ROUTE ; Start 09/22/19 at 08:11; Stop 09/22/19 at 08:11; Status DC Phenylephrine HCl (Scar-Synephrine Inj) 10 mg STK-MED ONCE .ROUTE ; Start 09/22/19 at 08:11; Stop 09/22/19 at 08:11; Status DC Propofol 50 ml @ As Directed STK-MED ONCE IV ; Start 09/22/19 at 08:11; Stop 09/22/19 at 08:11; Status DC Multi-Ingred Cream/Lotion/Oil/ Oint (Artificial Tears Eye Ointment) 7 venecia STK- MED ONCE .ROUTE ; Start 09/22/19 at 08:11; Stop 09/22/19 at 08:11; Status DC Sodium Chloride (SODIUM CHLORIDE 20ml) 20 ml STK-MED ONCE IJ ; Start 09/22/19 at 08:11; Stop 09/22/19 at 08:11; Status DC Dexamethasone Sodium Phosphate (Decadron) 4 mg STK-MED ONCE .ROUTE ; Start 09/22/19 at 08:11; Stop 09/22/19 at 08:11; Status DC Rocuronium Nubieber (Zemuron) 50 mg STK-MED ONCE .ROUTE ; Start 09/22/19 at 08:11; Stop 09/22/19 at 08:11; Status DC Remifentanil HCl (Ultiva) 2 mg STK-MED ONCE IV ; Start 09/22/19 at 08:11; Stop 09/22/19 at 08:11; Status DC Glycopyrrolate (Robinul) 1 mg STK-MED ONCE .ROUTE ; Start 09/22/19 at 08:11; Stop 09/22/19 at 08:11; Status DC Desflurane (Suprane) 90 ml STK-MED ONCE IH ; Start 09/22/19 at 08:30; Stop 09/22/19 at 08:31; Status DC Ephedrine Sulfate (ePHEDrine PF IN SALINE SYRINGE) 50 mg STK-MED ONCE IV ; Start 09/22/19 at 11:27; Stop 09/22/19 at 11:27; Status DC Remifentanil HCl (Ultiva) 1 mg STK-MED ONCE IV ; Start 09/22/19 at 12:18; Stop 09/22/19 at 12:18; Status DC Cefazolin Sodium (Ancef) 1 gm STK-MED ONCE IVP ; Start 09/22/19 at 13:10; Stop 09/22/19 at 13:10; Status DC Sodium Chloride (SODIUM CHLORIDE 20ml) 20 ml STK-MED ONCE IJ ; Start 09/22/19 at 13:10; Stop 09/22/19 at 13:10; Status DC Cefazolin Sodium (Ancef) 2 gm 1X ONCE IVP Last administered on 09/22/19at 13:14; Start 09/22/19 at 13:15; Stop 09/22/19 at 13:19; Status DC Fentanyl Citrate (Fentanyl 2ml Vial) 100 mcg STK-MED ONCE .ROUTE ; Start 09/22/19 at 14:00; Stop 09/22/19 at 14:00; Status DC Aspirin (Ecotrin) 81 mg DAILY PO Last administered on 09/24/19at 07:59; Start 09/23/19 at 09:00 Cyanocobalamin (Vitamin B-12) 1,000 mcg DAILY PO Last administered on 09/24/19at 07:59; Start 09/23/19 at 09:00 Gabapentin (Neurontin) 200 mg HS PO Last administered on 09/23/19at 20:45; Start 09/22/19 at 21:00 Hydroxychloroquine Sulfate (Plaquenil) 400 mg DAILY PO Last administered on 09/24/19at 07:59; Start 09/22/19 at 15:00 Levothyroxine Sodium (Synthroid) 100 mcg DAILY06 PO Last administered on 09/24/19at 06:03; Start 09/23/19 at 06:00 Polyethylene Glycol (miraLAX PACKET) 17 gm PRN DAILY PRN PO CONSTIPATION; Start 09/22/19 at 14:30 Simvastatin (Zocor) 40 mg QHS PO Last administered on 09/23/19at 20:44; Start 09/22/19 at 21:00 Vitamin D (Vitamin D3) 2,000 unit DAILY PO Last administered on 09/24/19at 07:59; Start 2/11/20 at 09:00 Pantoprazole Sodium (Protonix) 40 mg DAILYAC PO Last administered on 09/24/19at 07:18; Start 09/22/19 at 16:30 Glimepiride (Amaryl) 4 mg DAILY PO Last administered on 09/24/19at 07:59; Start 09/22/19 at 15:00 Lisinopril (Prinivil) 20 mg DAILY PO Last administered on 09/24/19 11:03; Start 09/22/19 at 16:00 Hydrochlorothiazide (Microzide) 12.5 mg DAILY PO Last administered on 09/24/19 11:03; Start 09/22/19 at 16:00 Metformin HCl (Glucophage) 1,000 mg QHS PO Last administered on 09/23/19at 20:45; Start 09/22/19 at 21:00 Linagliptin (Tradjenta) 5 mg DAILY PO Last administered on 09/24/19at 07:59; Start 09/22/19 at 16:00 Dextrose (Dextrose 50%-Water Syringe) 12.5 gm PRN Q15MIN PRN IV SEE COMMENTS; Start 09/22/19 at 14:30 Dextrose (Iv Dextrose 5%) 250 ml PRN Q15MIN PRN IV SEE COMMENTS; Start 09/22/19 at 14:30 Fentanyl Citrate (Fentanyl 2ml Vial) 50 mcg PRN Q2HR PRN IVP PAIN Last administered on 09/22/19at 18:27; Start 09/22/19 at 14:30 Acetaminophen (Tylenol) 650 mg PRN Q6HRS PRN PO FEVER; Start 09/22/19 at 14:30 Al Hydroxide/Mg Hydroxide (Mylanta Plus Xs) 30 ml PRN Q3HRS PRN PO HEARTBURN / GAS; Start 09/22/19 at 14:30 Calcium Carbonate/ Glycine (Tums) 500 mg PRN Q3HRS PRN PO INDIGESTION; Start 09/22/19 at 14:30 Diphenhydramine HCl (Benadryl) 25 mg PRN Q6HRS PRN PO ITCHING; Start 09/22/19 at 14:30 Naloxone HCl (Narcan) 0.1 mg PRN Q2MIN PRN IV ADMIN; Start 09/22/19 at 14:30 Sodium Chloride (Normal Saline Flush) 3 ml QSHIFT PRN IV AFTER MEDS AND BLOOD DRAWS; Start 09/22/19 at 14:30 Potassium Chloride/Sodium Chloride 1,000 ml @ 75 mls/hr [id number] IV Last administered on 09/23/19at 01:27; Start 09/22/19 at 14:24; Stop 09/24/19 at 06:36; Status DC Oxycodone/ Acetaminophen (Percocet 5/325) 1 tab PRN Q4HRS PRN PO MILD PAIN, 1ST CHOICE Last administered on 09/23/19at 10:51; Start 09/22/19 at 14:30 Oxycodone/ Acetaminophen (Percocet 5/325) 2 tab PRN Q4HRS PRN PO MODERATE PAIN, SEVERE PAIN Last administered on 09/24/19at 06:04; Start 09/22/19 at 14:30 Methocarbamol (Robaxin) 750 mg PRN TID PRN PO MUSCLE SPASMS Last administered on 09/22/19at 18:28; Start 09/22/19 at 14:30; Stop 09/23/19 at 11:09; Status DC Docusate Sodium (Colace) 100 mg BID PO Last administered on 09/24/19at 07:59; Start 09/22/19 at 21:00 Magnesium Hydroxide (Milk Of Magnesia) 2,400 mg PRN Q12HR PRN PO CONSTIPATION; Start 09/22/19 at 14:30 Cefazolin Sodium (Ancef) 1 gm Q8H IVP Last administered on 09/23/19at 08:23; Start 09/22/19 at 17:00; Stop 09/23/19 at 09:01; Status DC Insulin Glargine (Lantus Syringe) 4 unit QHS SQ Last administered on 09/23/19at 20:48; Start 09/22/19 at 21:00 Fentanyl Citrate (Fentanyl 2ml Vial) 25 mcg PRN Q5MIN PRN IV MILD PAIN 1-3; Start 09/22/19 at 15:45; Stop 09/22/19 at 18:24; Status DC Fentanyl Citrate (Fentanyl 2ml Vial) 50 mcg PRN Q5MIN PRN IV MODERATE TO SEVERE PAIN Last administered on 09/22/19at 15:45; Start 09/22/19 at 15:45; Stop 09/22/19 at 18:24; Status DC Morphine Sulfate (Morphine Sulfate) 1 mg PRN Q10MIN PRN IV SEVERE PAIN 7-10; Start 09/22/19 at 15:45; Stop 09/22/19 at 18:24; Status DC Ringer's Solution 1,000 ml @ 30 mls/hr Q24H IV ; Start 09/22/19 at 15:38; Stop 09/22/19 at 18:24; Status DC Hydromorphone HCl (Dilaudid) 0.5 mg PRN Q10MIN PRN IV SEV PAIN, Second choice; Start 09/22/19 at 15:45; Stop 09/22/19 at 18:24; Status DC Prochlorperazine Edisylate (Compazine) 5 mg PACU PRN PRN IV NAUSEA, MRX1; Start 09/22/19 at 15:45; Stop 09/22/19 at 18:24; Status DC Fentanyl Citrate (Fentanyl 2ml Vial) 25-50mcg q5 min IVP PRN wh... PRN Q5MIN PRN IVP pain; Start 09/22/19 at 15:45; Stop 09/22/19 at 18:24; Status DC Acetaminophen/ Hydrocodone Bitart (Lortab 7.5/325) 1 tab PRN Q6HRS PRN PO PAIN Last administered on 09/24/19at 10:55; Start 09/24/19 at 07:15 Acetaminophen/ Hydrocodone Bitart (Lortab 7.5/325) 2 tab PRN Q6HRS PRN PO PAIN; Start 09/24/19 at 07:30 Bisacodyl (Dulcolax Tab) 10 mg DAILY PO ; Start 09/25/19 at 09:00 Bisacodyl (Dulcolax Supp) 10 mg PRN DAILY PRN [place] CONSTIPATION; Start 09/24/19 at 10:15 Docusate Sodium (Enemeez) 283 mg PRN DAILY PRN [place] CONSTIPATION; Start 09/24/19 at 10:15 Active Scripts Active Miralax (Polyethylene Glycol 3350) 17 Gm Powd.pack 1 Packet PO PRN DAILY PRN Reported Hydrocodone-Acetamin 7.5-325 (Hydrocodone/Acetaminophen) 1 Each Tablet 1 Each PO TID PRN PRN Vitamin D3 (Cholecalciferol (Vitamin D3)) 2,000 Unit Tab.chew 1 Tab PO DAILY 30 Days Plaquenil (Hydroxychloroquine Sulfate) 200 Mg Tablet 400 Mg PO DAILY Meloxicam 15 Mg Tablet 1 Tab PO DAILY 30 Days Lisinopril-Hctz 20-12.5 Mg Tab (Lisinopril/Hydrochlorothiazide) 1 Each Tablet 1 Tab PO DAILY Aspir-Low (Aspirin) 81 Mg Tablet. 1 Tab PO DAILY Vitamin B-12 (Cyanocobalamin (Vitamin B-12)) 1,000 Mcg Tablet 1 Tab PO DAILY Gabapentin (Gabapentin) 100 Mg Capsule 200 Mg PO HS Nexium Capsule (Esomeprazole Magnesium) 20 Mg Capsule. 1 Cap PO DAILY Janumet 50-1,000 Mg Tablet (Sitagliptin Phos/Metformin Hcl) 1 Each Tablet 1 Each PO DAILY Metformin Hcl 1,000 Mg Tablet 1,000 Mg PO HS Glimepiride 4 Mg Tablet 1 Tab PO DAILY [place] Solostar (Insulin Glargine,Hum.rec.anlog) 300 Unit/1 Ml Insuln.pen 5 Unit SQ HS Levothyroxine Sodium 100 Mcg Tablet 1 Tab PO DAILY Simvastatin 40 Mg Tablet 1 Tab PO QHS Vitals/I & O Vital Sign - Last 24 Hours 09/23/19 09/23/19 09/23/19 09/23/19 16:15 19:30 19:30 19:48 Pulse 103 Resp 20 B/P (MAP) 135/58 (83) Pulse Ox 94 90 O2 Delivery Room Air Nasal Cannula Room Air Room Air O2 Flow Rate 2.0 09/23/19 09/23/19 09/24/19 09/24/19 21:00 21:41 03:09 06:04 Temp 98.9 98.3 98.9 98.3 Pulse 100 94 Resp 20 B/P (MAP) 129/56 (80) 117/50 (72) Pulse Ox 94 95 93 94 O2 Delivery Room Air Room Air Room Air Room Air 09/24/19 09/24/19 09/24/19 09/24/19 06:33 06:58 07:56 08:07 Temp 98.4 98.4 Pulse 104 109 Resp 20 B/P (MAP) 134/66 (88) 125/52 (76) Pulse Ox 96 94 O2 Delivery Room Air Room Air Room Air 2/08/0109/24/19 09/24/19 09/24/19 09:53 10:55 10:56 11:03 Temp 98.6 98.6 Pulse 96 96 Resp 16 B/P (MAP) 141/66 (91) 141/66 O2 Delivery Room Air Room Air Room Air 09/24/19 12:29 O2 Delivery Room Air Intake and Output 09/23/19 09/23/19 09/24/19 15:00 23:00 07:00 Intake Total 660 ml 200 ml 200 ml Output Total 475 ml 300 ml Balance 660 ml -275 ml -100 ml FIDEL WALLACE MD Sep 24, 2019 16:00
[2019-09-24 18:09] VITALS: BP 126/57
--- NOTE | 2019-09-24 20:06 | PATHOLOGY ---
[facility] Accession Number: [id number] . 01 Material submitted: . vertebral column - LUMBAR DISC AND DECOMPRESSION . 01 Clinical history: . Lumbar herniated disc, radiculopathy, spondylolisesis . 02 Diagnosis: Segments of fibrocartilaginous, fibroadipose, and skeletal muscle tissue and bone, lumbar disc and decompression: - Degenerative changes of fibrocartilaginous tissue. (JPM:javad; 09/24/2019) MBR 09/24/2019 1900 Local . 02 Comment: There is no evidence of an acute inflammatory process or malignancy. (JPM:javad; 09/24/2019) . 02 Electronically signed: . Herminio Pretty MD, Pathologist NPI- [id number] . 01 Gross description: . The specimen is received in formalin, labeled "Jessa Silva, lumbar disc and decompression" and consists of multiple segments of [place] rubbery and gritty soft fibrous tissue and bone, measuring 4.3 x 3.8 x 0.7 cm in aggregate. A inside sales account representative portion is submitted in A1 following decalcification. (SDY; 09/23/2019) SYU/SYU 09/24/2019 1547 Local . 02 Pathologist provided ICD-10: M51.36 . 02 CPT . 029914, 600290 Specimen Comment: A courtesy copy of this report has been sent to [phone] Specimen Comment: Report sent to DR ART Performed at: 01 [facility] [address], [place] [id number] MD Justin Solomon MD Phone: [phone] Performed at: 02 [facility] [address] [place], [place] [id number] MD Herminio Pretty MD Phone: [phone]
--- NOTE | 2019-09-24 20:15 | NUR ---
pt voided on her briefs assisted to bathroom voided 100cc yellow urine bladder scan done showing 50 ml pt stated no pressure on bladder area @ this time
[2019-09-24] MEDS: GABAPENTIN 100 MG CAPSULE. PO SCH (20:59)
[2019-09-24] MEDS: SIMVASTATIN 40 MG TABLET. PO SCH (20:59)
[2019-09-24] MEDS: metFORMIN 500 MG TABLET PO SCH (20:59)
[2019-09-24] MEDS: INSULIN GLARGINE SYRINGE. SQ SCH (21:06)
[2019-09-25] MEDS: HYDROcodone/APAP 7.5/325MG 1 TAB TABLET PO PRN ×2 (05:12→13:29)
[2019-09-25 05:38] VITALS: BP 122/54
[2019-09-25] MEDS: LEVOTHYROXINE 100 MCG TABLET PO SCH (05:54)
[2019-09-25] MEDS: DOCUSATE SODIUM 100 MG CAPSULE. PO SCH (08:15)
[2019-09-25] MEDS: HYDROXYCHLOROQUINE 200 MG TABLET PO SCH (08:15)
[2019-09-25] MEDS: CHOLECALCIFEROL (VITAMIN D3) 1,000 UNIT TABLET PO SCH (08:16)
[2019-09-25] MEDS: CYANOCOBALAMIN (VITAMIN B-12) 1,000 MCG TABLET. PO SCH (08:16)
[2019-09-25] MEDS: PANTOPRAZOLE 40 MG TABLET.DR. PO SCH (08:16)
[2019-09-25] MEDS: ASPIRIN ENTERIC COATED 81 MG TABLET.DR. PO SCH (08:16)
[2019-09-25] MEDS: GLIMEPIRIDE 2 MG TABLET. PO SCH (08:17)
[2019-09-25] MEDS: LINAGLIPTIN 5 MG TABLET PO SCH (08:17)
[2019-09-25] MEDS: hydroCHLOROthiazide 12.5 MG CAPSULE PO SCH (08:23)
[2019-09-25] MEDS: LISINOPRIL 20 MG TABLET PO SCH (08:23)
[2019-09-25] MEDS ORDERED: BISACODYL 5 MG TABLET.DR. PO SCH (09:00)
[2019-09-25 11:00] VITALS: BP 105/57
--- NOTE | 2019-09-25 12:56 | SNU/HH DC ---
DISCHARGE ORDERS DISCHARGE INFORMATION: DISCHARGE DATE: Sep 25, 2019 FINAL DIAGNOSIS spondylolisthesis CONDITION ON DISCHARGE: Stable CODE STATUS: Code Status: Full SENIOR CARE: SNF STAY <30 DAYS: Yes HOSPICE: HOSPICE: No POST DISCHARGE ORDERS: ACTIVITY ORDERS: Activity as tolerated, Avoid exertion BATHING ORDERS: Shower-keep dressing dry, No Tub Bath until see DIET AFTER DISCHARGE: AMADOU WOUND/INCISION CARE: Ice to area for comfort OTHER WOUND INSTRUCTIONS: may remove dressing in 48 hours if dry then may shower, no soaking CHECKS AFTER DISCHARGE: CHECKS AFTER DISCHARGE: Check blood press - daily FOLLOW-UP: PHYSICIAN FOLLOW-UP: Dr. Wallace's nurse in 2 weeks [phone] TREATMENT/EQUIPMENT ORDERS: ADAPTIVE EQUIPMENT NEEDED: Front wheeled walker Physical Therapy For: Evalulation/Treatment Occupational Therapy For: Evaluation/Treatment DISCHARGE MEDICATIONS: Home Meds Active Scripts Polyethylene Glycol 3350 (MIRALAX) 17 Gm Powd.pack, 1 PACKET PO PRN DAILY PRN for CONSTIPATION, #30 PACKET 3 Refills Prov:DAVID CORTEZ MD 01/01/15 Reported Medications Hydrocodone/Acetaminophen (Hydrocodone-Acetamin 7.5-325) 1 Each Tablet, 1 EACH PO TID PRN PRN for PAIN, TAB 2/3/20 Cholecalciferol (Vitamin D3) (Vitamin D3) 2,000 Unit Tab.chew, 1 TAB PO DAILY for vitamin for 30 Days, #30 TAB 0 Refills /3/20 Hydroxychloroquine Sulfate (PLAQUENIL) 200 Mg Tablet, 400 MG PO DAILY for pain, TAB 2/3/20 Meloxicam (MELOXICAM) 15 Mg Tablet, 1 TAB PO DAILY for pain for 30 Days, #30 TAB 0 Refills 2/3/20 Lisinopril/Hydrochlorothiazide (LISINOPRIL-HCTZ 20-12.5 MG TAB) 1 Each Tablet, 1 TAB PO DAILY for htn, #30 TAB 5 Refills 2/3/20 Aspirin (ASPIR-LOW) 81 Mg Tablet.dr, 1 TAB PO DAILY for heart, #30 TAB 3 Refills //20 Cyanocobalamin (Vitamin B-12) (VITAMIN B-12) 1,000 Mcg Tablet, 1 TAB PO DAILY, #30 TAB 2 Refills 12/12/17 Gabapentin (GABAPENTIN ) 100 Mg Capsule, 200 MG PO HS, CAP 12/12/17 Esomeprazole Magnesium (NEXIUM CAPSULE) 20 Mg Capsule.dr, 1 CAP PO DAILY, #30 CAP 2 Refills 05/21/17 Sitagliptin Phos/Metformin Hcl (JANUMET 50-1,000 MG TABLET) 1 Each Tablet, 1 EACH PO DAILY, TAB 05/21/17 Metformin Hcl (METFORMIN HCL) 1,000 Mg Tablet, 1000 MG PO HS for ANTI-DIABETIC, TAB 0 Refills 05/21/17 Glimepiride (GLIMEPIRIDE) 4 Mg Tablet, 1 TAB PO DAILY, #30 TAB 5 Refills 05/21/17 Insulin Glargine,Hum.rec.anlog ([place] Solostar) 300 Unit/1 Ml Insuln.pen, 5 UNIT SQ HS 04/27/16 Levothyroxine Sodium (LEVOTHYROXINE SODIUM) 100 Mcg Tablet, 1 TAB PO DAILY, #30 TAB 5 Refills 01/29/15 Simvastatin (SIMVASTATIN) 40 Mg Tablet, 1 TAB PO QHS, #30 TAB 5 Refills 01/01/15 FIDEL WALLACE MD Sep 25, 2019 12:56
--- NOTE | 2019-09-25 13:11 | PDOC ---
PROGRESS NOTES Subjective Subjective She feels better. Objective Objective Vital Signs Date Time Temp Pulse Resp B/P (MAP) Pulse Ox O2 Delivery O2 Flow Rate FiO2 09/25/19 11:00 97.9 96 16 105/57 (73) 94 Room Air 97.9 09/23/19 19:30 2.0 Intake and Output 09/25/19 07:00 Intake Total 1030 ml Output Total 900 ml Balance 130 ml Intake Oral 1030 ml Output Urine Total 900 ml # Voids 3 Physical Exam Physical Exam She is supine in bed and comfortable and continues with tenderness to palpation over sacroiliac joints and she is requiring some assistance with bed mobility and transfers but once up she is walking with roller walker. She is voiding good and had a good bowel movement. Plan Plan of Care To SNF when medically stable. Comment Review of Relevant I have reviewed the following items carley (where applicable) has been applied. Labs Laboratory Tests Test 09/23/19 16:47 09/23/19 20:38 09/24/19 06:17 09/24/19 10:58 Glucose (Fingerstick) 254 mg/dL (70-99) 278 mg/dL (70-99) 181 mg/dL (70-99) 263 mg/dL (70-99) Test 09/24/19 20:40 09/25/19 05:54 09/25/19 11:30 Glucose (Fingerstick) 254 mg/dL (70-99) 105 mg/dL (70-99) 203 mg/dL (70-99) Laboratory Tests Test 09/24/19 20:40 09/25/19 05:54 09/25/19 11:30 Glucose (Fingerstick) 254 mg/dL (70-99) 105 mg/dL (70-99) 203 mg/dL (70-99) Medications Current Medications Bacitracin 11064 unit/Sodium Chloride 1,000 ml @ 1,000 mls/hr 1X ONCE IRR Last administered on 09/22/19at 09:51; Start 09/22/19 at 06:00; Stop 09/22/19 at 06:59; Status DC Cefazolin Sodium/ Dextrose 50 ml @ 100 mls/hr 1X ONCE IV Last administered on 09/22/19at 09:23; Start 09/22/19 at 06:00; Stop 09/22/19 at 06:29; Status DC Ringer's Solution 1,000 ml @ 100 mls/hr Q10H IV Last administered on 09/22/19at 06:38; Start 09/22/19 at 06:45; Stop 09/23/19 at 04:44; Status DC Insulin Human Lispro (HumaLOG VIAL for OP,RR ONLY) 0-10 units PRN Q1HR PRN SQ PER PROTOCOL Last administered on 09/22/19at 15:24; Start 09/22/19 at 06:45; Stop 09/23/19 at 06:44; Status DC Gelatin (Gelfoam Size 100) 1 each STK-MED ONCE .ROUTE Last administered on 09/22/19at 09:51; Start 09/22/19 at 07:33; Stop 09/22/19 at 07:33; Status DC Bupivacaine HCl (Sensorcaine Mpf 0.5%) 30 ml STK-MED ONCE .ROUTE ; Start 09/22/19 at 07:33; Stop 09/22/19 at 07:34; Status DC Thrombin 20,000 unit STK-MED ONCE TP Last administered on 09/22/19at 09:51; Start 09/22/19 at 07:33; Stop 09/22/19 at 07:34; Status DC Bupivacaine HCl/ Epinephrine Bitart (Sensorcain-Epi 0.5%-1:[id number] Mpf) 30 ml STK-MED ONCE .ROUTE Last administered on 09/22/19at 09:51; Start 09/22/19 at 07:34; Stop 09/22/19 at 07:34; Status DC Ketorolac Tromethamine (Toradol Im) 60 mg STK-MED ONCE .ROUTE Last administered on 09/22/19at 09:51; Start 09/22/19 at 07:39; Stop 09/22/19 at 07:40; Status DC Propofol 20 ml @ As Directed STK-MED ONCE IV ; Start 09/22/19 at 08:11; Stop 09/22/19 at 08:11; Status DC Lidocaine HCl (Lidocaine Pf 2% Vial) 5 ml STK-MED ONCE .ROUTE ; Start 09/22/19 at 08:11; Stop 09/22/19 at 08:11; Status DC Ondansetron HCl (Zofran) 4 mg STK-MED ONCE .ROUTE ; Start 09/22/19 at 08:11; Stop 09/22/19 at 08:11; Status DC Phenylephrine HCl (Scar-Synephrine Inj) 10 mg STK-MED ONCE .ROUTE ; Start 09/22/19 at 08:11; Stop 09/22/19 at 08:11; Status DC Propofol 50 ml @ As Directed STK-MED ONCE IV ; Start 09/22/19 at 08:11; Stop 09/22/19 at 08:11; Status DC Multi-Ingred Cream/Lotion/Oil/ Oint (Artificial Tears Eye Ointment) 7 venecia STK- MED ONCE .ROUTE ; Start 09/22/19 at 08:11; Stop 09/22/19 at 08:11; Status DC Sodium Chloride (SODIUM CHLORIDE 20ml) 20 ml STK-MED ONCE IJ ; Start 09/22/19 at 08:11; Stop 09/22/19 at 08:11; Status DC Dexamethasone Sodium Phosphate (Decadron) 4 mg STK-MED ONCE .ROUTE ; Start 09/22/19 at 08:11; Stop 09/22/19 at 08:11; Status DC Rocuronium [place] (Zemuron) 50 mg STK-MED ONCE .ROUTE ; Start 09/22/19 at 08:11; Stop 09/22/19 at 08:11; Status DC Remifentanil HCl (Ultiva) 2 mg STK-MED ONCE IV ; Start 09/22/19 at 08:11; Stop 09/22/19 at 08:11; Status DC Glycopyrrolate (Robinul) 1 mg STK-MED ONCE .ROUTE ; Start 09/22/19 at 08:11; Stop 09/22/19 at 08:11; Status DC Desflurane (Suprane) 90 ml STK-MED ONCE IH ; Start 09/22/19 at 08:30; Stop 09/22/19 at 08:31; Status DC Ephedrine Sulfate (ePHEDrine PF IN SALINE SYRINGE) 50 mg STK-MED ONCE IV ; Start 09/22/19 at 11:27; Stop 09/22/19 at 11:27; Status DC Remifentanil HCl (Ultiva) 1 mg STK-MED ONCE IV ; Start 09/22/19 at 12:18; Stop 09/22/19 at 12:18; Status DC Cefazolin Sodium (Ancef) 1 gm STK-MED ONCE IVP ; Start 09/22/19 at 13:10; Stop 09/22/19 at 13:10; Status DC Sodium Chloride (SODIUM CHLORIDE 20ml) 20 ml STK-MED ONCE IJ ; Start 09/22/19 at 13:10; Stop 09/22/19 at 13:10; Status DC Cefazolin Sodium (Ancef) 2 gm 1X ONCE IVP Last administered on 09/22/19at 13:14; Start 09/22/19 at 13:15; Stop 09/22/19 at 13:19; Status DC Fentanyl Citrate (Fentanyl 2ml Vial) 100 mcg STK-MED ONCE .ROUTE ; Start 09/22/19 at 14:00; Stop 09/22/19 at 14:00; Status DC Aspirin (Ecotrin) 81 mg DAILY PO Last administered on 09/25/19at 08:16; Start 09/23/19 at 09:00 Cyanocobalamin (Vitamin B-12) 1,000 mcg DAILY PO Last administered on 09/25/19at 08:16; Start 09/23/19 at 09:00 Gabapentin (Neurontin) 200 mg HS PO Last administered on 09/24/19at 20:59; Start 09/22/19 at 21:00 Hydroxychloroquine Sulfate (Plaquenil) 400 mg DAILY PO Last administered on 09/25/19 08:15; Start 09/22/19 at 15:00 Levothyroxine Sodium (Synthroid) 100 mcg DAILY06 PO Last administered on 09/25/19at 05:54; Start 09/23/19 at 06:00 Polyethylene Glycol (miraLAX PACKET) 17 gm PRN DAILY PRN PO CONSTIPATION; Start 09/22/19 at 14:30 Simvastatin (Zocor) 40 mg QHS PO Last administered on 09/24/19at 20:59; Start 09/22/19 at 21:00 Vitamin D (Vitamin D3) 2,000 unit DAILY PO Last administered on 09/25/19 08:16; Start 09/23/19 at 09:00 Pantoprazole Sodium (Protonix) 40 mg DAILYAC PO Last administered on 09/25/19at 08:16; Start 09/22/19 at 16:30 Glimepiride (Amaryl) 4 mg DAILY PO Last administered on 09/25/19 08:17; Start 09/22/19 at 15:00 Lisinopril (Prinivil) 20 mg DAILY PO Last administered on 09/25/19 08:23; Start 09/22/19 at 16:00 Hydrochlorothiazide (Microzide) 12.5 mg DAILY PO Last administered on 09/25/19 08:23; Start 09/22/19 at 16:00 Metformin HCl (Glucophage) 1,000 mg QHS PO Last administered on 09/24/19at 20:59; Start 09/22/19 at 21:00 Linagliptin (Tradjenta) 5 mg DAILY PO Last administered on 09/25/19 08:17; Start 09/22/19 at 16:00 Dextrose (Dextrose 50%-Water Syringe) 12.5 gm PRN Q15MIN PRN IV SEE COMMENTS; Start 09/22/19 at 14:30 Dextrose (Iv Dextrose 5%) 250 ml PRN Q15MIN PRN IV SEE COMMENTS; Start 09/22/19 at 14:30 Fentanyl Citrate (Fentanyl 2ml Vial) 50 mcg PRN Q2HR PRN IVP PAIN Last administered on 09/22/19at 18:27; Start 09/22/19 at 14:30 Acetaminophen (Tylenol) 650 mg PRN Q6HRS PRN PO FEVER; Start 09/22/19 at 14:30 Al Hydroxide/Mg Hydroxide (Mylanta Plus Xs) 30 ml PRN Q3HRS PRN PO HEARTBURN / GAS; Start 09/22/19 at 14:30 Calcium Carbonate/ Glycine (Tums) 500 mg PRN Q3HRS PRN PO INDIGESTION; Start 09/22/19 at 14:30 Diphenhydramine HCl (Benadryl) 25 mg PRN Q6HRS PRN PO ITCHING; Start 09/22/19 at 14:30 Naloxone HCl (Narcan) 0.1 mg PRN Q2MIN PRN IV ADMIN; Start 09/22/19 at 14:30 Sodium Chloride (Normal Saline Flush) 3 ml QSHIFT PRN IV AFTER MEDS AND BLOOD DRAWS; Start 09/22/19 at 14:30 Potassium Chloride/Sodium Chloride 1,000 ml @ 75 mls/hr [id number] IV Last administered on 09/23/19at 01:27; Start 09/22/19 at 14:24; Stop 09/24/19 at 06:36; Status DC Oxycodone/ Acetaminophen (Percocet 5/325) 1 tab PRN Q4HRS PRN PO MILD PAIN, 1ST CHOICE Last administered on 09/23/19at 10:51; Start 09/22/19 at 14:30 Oxycodone/ Acetaminophen (Percocet 5/325) 2 tab PRN Q4HRS PRN PO MODERATE PAIN, SEVERE PAIN Last administered on 09/24/19at 06:04; Start 09/22/19 at 14:30 Methocarbamol (Robaxin) 750 mg PRN TID PRN PO MUSCLE SPASMS Last administered o n 09/22/19at 18:28; Start 09/22/19 at 14:30; Stop 09/23/19 at 11:09; Status DC Docusate Sodium (Colace) 100 mg BID PO Last administered on 09/25/19at 08:15; Start 09/22/19 at 21:00 Magnesium Hydroxide (Milk Of Magnesia) 2,400 mg PRN Q12HR PRN PO CONSTIPATION; Start 09/22/19 at 14:30 Cefazolin Sodium (Ancef) 1 gm Q8H IVP Last administered on 09/23/19at 08:23; Start 09/22/19 at 17:00; Stop 09/23/19 at 09:01; Status DC Insulin Glargine (Lantus Syringe) 4 unit QHS SQ Last administered on 09/24/19at 21:06; Start 09/22/19 at 21:00 Fentanyl Citrate (Fentanyl 2ml Vial) 25 mcg PRN Q5MIN PRN IV MILD PAIN 1-3; Start 09/22/19 at 15:45; Stop 09/22/19 at 18:24; Status DC Fentanyl Citrate (Fentanyl 2ml Vial) 50 mcg PRN Q5MIN PRN IV MODERATE TO SEVERE PAIN Last administered on 09/22/19at 15:45; Start 09/22/19 at 15:45; Stop 09/22/19 at 18:24; Status DC Morphine Sulfate (Morphine Sulfate) 1 mg PRN Q10MIN PRN IV SEVERE PAIN 7-10; Start 09/22/19 at 15:45; Stop 09/22/19 at 18:24; Status DC Ringer's Solution 1,000 ml @ 30 mls/hr Q24H IV ; Start 09/22/19 at 15:38; Stop 09/22/19 at 18:24; Status DC Hydromorphone HCl (Dilaudid) 0.5 mg PRN Q10MIN PRN IV SEV PAIN, Second choice; Start 09/22/19 at 15:45; Stop 09/22/19 at 18:24; Status DC Prochlorperazine Edisylate (Compazine) 5 mg PACU PRN PRN IV NAUSEA, MRX1; Start 09/22/19 at 15:45; Stop 09/22/19 at 18:24; Status DC Fentanyl Citrate (Fentanyl 2ml Vial) 25-50mcg q5 min IVP PRN wh... PRN Q5MIN PRN IVP pain; Start 09/22/19 at 15:45; Stop 09/22/19 at 18:24; Status DC Acetaminophen/ Hydrocodone Bitart (Lortab 7.5/325) 1 tab PRN Q6HRS PRN PO PAIN Last administered on 09/24/19at 17:05; Start 09/24/19 at 07:15 Acetaminophen/ Hydrocodone Bitart (Lortab 7.5/325) 2 tab PRN Q6HRS PRN PO PAIN Last administered on 09/25/19at 05:12; Start 09/24/19 at 07:30 Bisacodyl (Dulcolax Tab) 10 mg DAILY PO ; Start 09/25/19 at 09:00 Bisacodyl (Dulcolax Supp) 10 mg PRN DAILY PRN [place] CONSTIPATION; Start 09/24/19 at 10:15 Docusate Sodium (Enemeez) 283 mg PRN DAILY PRN [place] CONSTIPATION; Start 09/24/19 at 10:15 Active Scripts Active Miralax (Polyethylene Glycol 3350) 17 Gm Powd.pack 1 Packet PO PRN DAILY PRN Reported Hydrocodone-Acetamin 7.5-325 (Hydrocodone/Acetaminophen) 1 Each Tablet 1 Each PO TID PRN PRN Vitamin D3 (Cholecalciferol (Vitamin D3)) 2,000 Unit Tab.chew 1 Tab PO DAILY 30 Days Plaquenil (Hydroxychloroquine Sulfate) 200 Mg Tablet 400 Mg PO DAILY Meloxicam 15 Mg Tablet 1 Tab PO DAILY 30 Days Lisinopril-Hctz 20-12.5 Mg Tab (Lisinopril/Hydrochlorothiazide) 1 Each Tablet 1 Tab PO DAILY Aspir-Low (Aspirin) 81 Mg Tablet. 1 Tab PO DAILY Vitamin B-12 (Cyanocobalamin (Vitamin B-12)) 1,000 Mcg Tablet 1 Tab PO DAILY Gabapentin (Gabapentin) 100 Mg Capsule 200 Mg PO HS Nexium Capsule (Esomeprazole Magnesium) 20 Mg Capsule. 1 Cap PO DAILY Janumet 50-1,000 Mg Tablet (Sitagliptin Phos/Metformin Hcl) 1 Each Tablet 1 Each PO DAILY Metformin Hcl 1,000 Mg Tablet 1,000 Mg PO HS Glimepiride 4 Mg Tablet 1 Tab PO DAILY [place]eng Solostar (Insulin Glargine,Hum.rec.anlog) 300 Unit/1 Ml Insuln.pen 5 Unit SQ HS Levothyroxine Sodium 100 Mcg Tablet 1 Tab PO DAILY Simvastatin 40 Mg Tablet 1 Tab PO QHS Vitals/I & O Vital Sign - Last 24 Hours 09/24/19 09/24/19 09/24/19 09/24/19 17:05 18:09 18:13 19:45 Temp 99.0 99.0 Pulse 98 Resp 16 B/P (MAP) 126/57 (80) Pulse Ox 94 O2 Delivery Room Air Room Air Room Air Room Air 09/24/19 09/25/19 09/25/19 09/25/19 22:52 00:00 05:12 05:38 Temp 98.2 98.2 Pulse 88 Resp 20 18 18 20 B/P (MAP) 122/54 (76) Pulse Ox 94 94 94 O2 Delivery Room Air Room Air Room Air 09/25/19 09/25/19 09/25/19 09/25/19 06:15 08:10 08:23 11:00 Temp 97.9 97.9 Pulse 96 96 Resp 20 16 B/P (MAP) 121/62 105/57 (73) Pulse Ox 94 O2 Delivery Room Air Room Air Room Air Intake and Output 09/24/19 09/24/19 09/25/19 15:00 23:00 07:00 Intake Total 720 ml 200 ml 110 ml Output Total 400 ml 300 ml 200 ml Balance 320 ml -100 ml -90 ml LULI MARIN MD Sep 25, 2019 13:11
[2019-09-25 15:05] VITALS: BP 134/66
--- NOTE | 2019-09-25 17:15 | NUR ---
Report called to Lea NINA at [facility].
[2019-09-25 18:00] VITALS: BP 132/59
--- NOTE | 2019-09-25 18:09 | DS ---
DATE OF DISCHARGE: 09/25/2019 DISCHARGE DIAGNOSES: Herniated lumbar disc, L3-L4, left with left lumbar radiculopathy as well as spondylolisthesis L4-L5 with motion on flexion and extension. OPERATIONS PERFORMED: 1. Left lumbar hemilaminotomy with decompression of dura and nerve roots with microdiskectomy, L3-L4, left. 2. Posterior instrumentation L3, L4, L5 with posterolateral fusion L3, L4, L5. HISTORY OF PRESENT ILLNESS: The patient is a pleasant 79-year-old who developed intractable back and left leg pain, which failed to improve with conservative measures. She had the above-mentioned findings on imaging studies and I recommended lumbar microsurgery. I spoke with her about the surgery, the risks, the technique and expected postoperative course and she wished to go ahead. HOSPITAL COURSE: She was admitted to the floor postoperatively where she has done well. She has been up ambulating with physical therapy. Physical therapy gave her instructions regarding her activity restrictions. Her pain is well controlled and she is in good condition to discharge to [facility]. She does report resolution of her leg pain and her incisional back pain is well controlled with medication. DISCHARGE MEDICATIONS: She will resume her medications per the MRAD. DISCHARGE INSTRUCTIONS: She was instructed regarding incision care, activity restrictions and expectations for the next several weeks. She will follow up in our office in 2 weeks. She understands to call with any questions or concerns. FIDEL WALLACE MD DR: FRAN/timothy JOB#: [id number] / [id number]
--- NOTE | 2019-09-25 18:30 | NUR ---
Transferred pt to room #426 by Accompanied by casey. Addendum: 09/25/19 at 1848 by SABINO MANNING RN Above note charted on wrong patient.
--- NOTE | 2019-09-25 18:38 | NUR ---
Pt discharge to [facility] by venecia romero
== END 2019-09-25 18:38 | DRG 460 ==
LOC: OPSVCIP 05:49 → 4 SOUTHEST 15:50
PROVIDERS: ADMIT Neurological Surgery; ATTEND Neurological Surgery
PROC: 01NB0ZZ Release Lumbar Nerve, Open Approach (ICD-10-PCS; 2019-09-22)
PROC: 00NY0ZZ Release Lumbar Spinal Cord, Open Approach (ICD-10-PCS; 2019-09-22)
PROC: 0SB20ZZ Excision of Lumbar Vertebral Disc, Open Approach (ICD-10-PCS; 2019-09-22)
PROC: 4A11X4G Monitoring of Peripheral Nervous Electrical Activity, Intraoperative, External Approach (ICD-10-PCS; 2019-09-22)
PROC: 009U3ZZ Drainage of Spinal Canal, Percutaneous Approach (ICD-10-PCS; 2019-09-22)
PROC: 0SG10K1 Fusion of 2 or more Lumbar Vertebral Joints with Nonautologous Tissue Substitute, Posterior Approach, Posterior Column, Open Approach (ICD-10-PCS; principal; 2019-09-22 08:30)
DX: M51.16 Intervertebral disc disorders with radiculopathy, lumbar region (principal); M43.16 Spondylolisthesis, lumbar region; E11.9 Type 2 diabetes mellitus without complications; G89.29 Other chronic pain; M17.0 Bilateral primary osteoarthritis of knee; Z60.2 Problems related to living alone; Z83.3 Family history of diabetes mellitus; Z87.891 Personal history of nicotine dependence; Z90.711 Acquired absence of uterus with remaining cervical stump; E66.9 Obesity, unspecified; Z68.34 Body mass index [BMI] 34.0-34.9, adult; Z90.710 Acquired absence of both cervix and uterus
CPT/HCPCS: 36415; 72131; 76000; 82962; 86850; 86900; 86901; 86920; 88304; 88311; A7015; C1713; J0171; J0690; J0696; J1100; J1815; J1885; J2001; J2405; J2704; J3010; J3490; J7030; J7120; 97110; 97116; 97530; 97535; G0378

== ENCOUNTER → 2019-12-18 | Outpatient (CLI) | payer MEDICARE ==
[2019-10-16 11:00] VITALS: BP 144/54
[~2019-12-18] MED LIST changes: +DAPT350V IV; +GABA300C18 PO; +GADOTERATE 7.5 MMOL/15ML VIAL. IVP ONE
[2019-12-18 14:18] LABS: CREATININE 1.2 mg/dL (0.6-1.0); GFR 43.6
--- NOTE | 2019-12-18 15:42 | RAD ---
LUMBAR SPINE WO/W CONTRAST Date: 12/18/2019 1:45 PM Indication: History of lumbar fusion with postoperative infection 3 months ago. Comparison: CT 10/13/2019. MRI 03/17/2019. Technique: Multi-planar multi-weighted magnetic resonance imaging of the lumbar spine was performed with and without intravenous contrast using the standard lumbar spine protocol. 17 cc Dotarem contrast was administered intravenously during the examination. FINDINGS: Postsurgical changes of posterior decompression at L3-4 and posterior instrumentation at L3-L5. Expected postsurgical in the laminectomy defect and posterior paraspinal soft tissues. No epidural collection. Trace retrolisthesis at L2-3 and L3-4. Trace anterolisthesis at L4-5. No acute fracture. Moderate multilevel degenerative disc desiccation and disc height loss. Multilevel trace degenerative endplate edema. The conus terminates at a normal level. No abnormal signal is seen within the visualized distal spinal cord. No clumping of intrathecal nerve roots. No soft tissue abnormality in the visualized abdomen or pelvis. T12-L1: No disc bulge. No facet arthropathy. No significant spinal stenosis or neural foraminal narrowing. L1-L2: Disc bulge. Mild facet arthropathy. No significant spinal stenosis. Mild left neural foraminal narrowing. L2-L3: Disc bulge. Moderate facet arthropathy. Mild spinal stenosis and right lateral recess narrowing. Mild to moderate bilateral neural foraminal narrowing. L3-L4: Left hemilaminectomy. Disc bulge. No spinal canal stenosis. Mild left lateral recess narrowing. Mild right and moderate left neural foraminal narrowing. L4-L5: Disc bulge. Mild facet arthropathy. Ligamentum flavum thickening. Mild spinal stenosis and lateral recess narrowing. Mild to moderate right and mild left neural foraminal narrowing. L5-S1: Disc bulge. Mild facet arthropathy. No significant spinal stenosis or neural foraminal narrowing. IMPRESSION: 1. No evidence of osteomyelitis/discitis. No epidural collection. 2. Moderate lumbar spondylosis, detailed level by level above. Electronically signed by: Wellington Flor MD (12/18/2019 3:38 PM) [id number]
== END | disposition home or self-care (01) ==
LOC: MRI 13:27
PROVIDERS: ATTEND Neurological Surgery
DX: M47.816 Spondylosis without myelopathy or radiculopathy, lumbar region (principal); M12.88 Other specific arthropathies, not elsewhere classified, other specified site; M51.27 Other intervertebral disc displacement, lumbosacral region; M48.061 Spinal stenosis, lumbar region without neurogenic claudication; T81.42XD Infection following a procedure, deep incisional surgical site, subsequent encounter
CPT/HCPCS: 36415; 72158; 82565; A9575

== ENCOUNTER → 2020-03-23 | Outpatient (CLI) | payer MEDICARE ==
[2019-10-16 11:00] VITALS: BP 144/54
[~2020-03-23] MED LIST changes: -GADOTERATE 7.5 MMOL/15ML VIAL. IVP ONE; -LISI1TAB19 PO; +LISI1TAB37 PO
--- NOTE | 2020-03-23 17:19 | KCIC ---
LUMBAR SPINE 2-3V History: Low back pain, status post fusion September 2019 Comparison: CT lumbar spine exam October 13, 2019 Findings: 3 views of the lumbar spine are submitted. There is again posterolateral fusion hardware with bilateral pedicle screws attached to vertical rods at L5, L4, and L3. There is again mild posterior subluxation L3 relative to L4 and L2 relative to L3 and grade 1 anterior spondylolisthesis at L4-5, also negligible anterior spondylolisthesis at L5-S1. Lumbar vertebral body stature is unchanged overall preserved. There is again advanced degenerative disc disease L1-L2 through L4-5 and minimally at L5-S1. There is very mild superior lumbar levoscoliosis. There has been cholecystectomy. There is atherosclerotic calcification of the abdominal aorta. Impression: 1. There is intact posterolateral fusion hardware L3-L5. There is similar multilevel abnormal alignment and multilevel lumbar degenerative disc disease. Electronically signed by: Wellington Hale MD (03/23/2020 5:16 PM) [id number]
== END | disposition home or self-care (01) ==
LOC: KCIC 13:52
PROVIDERS: ATTEND Neurological Surgery
DX: M43.17 Spondylolisthesis, lumbosacral region (principal); M51.37 Other intervertebral disc degeneration, lumbosacral region; M41.86 Other forms of scoliosis, lumbar region; M99.1 Subluxation complex (vertebral); I70.0 Atherosclerosis of aorta; Z90.49 Acquired absence of other specified parts of digestive tract
CPT/HCPCS: 72100

== ENCOUNTER → 2020-08-17 | Outpatient (CLI) | payer MEDICARE ==
[2019-10-16 11:00] VITALS: BP 144/54
--- NOTE | 2020-08-17 13:57 | KCIC ---
EXAM: Lumbar spine, 2 views. HISTORY: Pain. COMPARISON: 03/23/2020 FINDINGS: 2 views lumbar spine are obtained. There is instrumented posterior spinal fusion at L3-L5. There is grade 1 anterolisthesis of L4 on L5, measuring 7 mm. There is 5 mm retrolisthesis of L3 on L 4. There is 5 mm retrolisthesis of L2 on L3. There is 5 mm anterolisthesis of L5 on S1. There is dege nerative endplate remodeling with disc space narrowing and osteophytosis primarily at L2-L3, and to a lesser extent, L1-L2, L3-L4 and L4-L5. There is multilevel facet arthropathy. There are surgical cli ps within the abdomen. IMPRESSION: 1. Instrumented posterior fusion at L3-L5. There has been increase and grade 1 anterolisthesis of and L4 on L5 and retrolisthesis of L3 on L4 compared to the postoperative exam. There is no lucency surr ounding the instrumentation to suggest loosening. 2. Grade 1 anterolisthesis of L5 on S1, stable in appearance. There is also stable retrolisthesis of L2 on L3. 3. Multilevel degenerative change, described above. Electronically signed by: Herlinda Langston MD (08/17/2020 1:55 PM) [id number]
== END ==
LOC: KCIC 13:11
PROVIDERS: ATTEND Neurological Surgery
DX: M47.816 Spondylosis without myelopathy or radiculopathy, lumbar region (principal); M43.26 Fusion of spine, lumbar region; M43.16 Spondylolisthesis, lumbar region
CPT/HCPCS: 72100

== ENCOUNTER → 2020-11-17 | Outpatient (CLI) | payer MEDICARE ==
[2019-10-16 11:00] VITALS: BP 144/54
--- NOTE | 2020-11-17 14:52 | KCIC ---
Examination: CT of the abdomen pelvis without contrast HISTORY: History of abdominal pain, diarrhea, epigastric discomfort COMPARISON: None TECHNIQUE: Axial CT images of the abdomen pelvis were performed without contrast. Coronal and sagitta l reformats are performed Exposure: One or more of the following individualized dose reduction techniques were utilized for thi s examination: 1. Automated exposure control 2. Adjustment of the mA and/or kV according to patient size 3. Use of iterative reconstruction technique FINDINGS: Small calcified granuloma identified in the right lung base otherwise, the bibasilar lungs are clear. No evidence of free air identified in the abdomen. The noncontrasted liver, adrenals grossly appears unremarkable. Calcified granulomas identified in the spleen. Cholecystectomy changes identified. The stomach is mildly distended. The small bowel is nondilated. Feces and gas noted in the ascending, tr ansverse colon. Mild thickened appearance of the wall of the descending and sigmoid colon. The gallbl adder is mildly distended No evidence of intrarenal collecting system calculi or hydronephrosis. Posterior lumbar fusion hardwa re identified at L3, L4, L5 vertebral level with bilateral pedicle screws. IMPRESSION: 1. Mild thickened appearance of the wall of the descending and sigmoid colon could be secondary to n ondistention or mild colitis. 2. Cholecystectomy changes. Electronically signed by: Dm Tenorio MD (11/17/2020 2:50 PM) [id number]
== END ==
LOC: KCIC CT 13:36
PROVIDERS: ATTEND Family Medicine
DX: K31.89 Other diseases of stomach and duodenum (principal); Z90.49 Acquired absence of other specified parts of digestive tract
CPT/HCPCS: 74176

== ENCOUNTER → 2021-03-30 | Outpatient (CLI) | payer MEDICARE ==
[2019-10-16 11:00] VITALS: BP 144/54
--- NOTE | 2021-03-30 20:50 | KCIC ---
Lumbar spine 2 views: Reason for examination: Low back pain. Surgery 15 months ago. Denies radiculopathy. Comparison is made to previous study dated 08/17/2020. There are postop changes with pedicle screws and rods present from L3 through L5 with continued prese nce of a 7 mm grade 1 retrolisthesis of L2 on L3 and a 6 mm retrolisthesis of L3 on L4. There also co ntinues to be a 7 mm anterolisthesis of L4 on L5. These do not show significant change. There is dege nerative disc disease at the L1-2 and L2-3 disc levels which is unchanged. No abnormality seen at the sacrum or sacroiliac joints. IMPRESSION: No acute abnormality evident in the lumbar spine or sacrum. Electronically signed by: Fior Mcclain MD (03/30/2021 8:48 PM) [id number]
== END ==
LOC: KCIC 13:24
PROVIDERS: ATTEND Neurological Surgery
DX: M51.36 Other intervertebral disc degeneration, lumbar region (principal); M43.16 Spondylolisthesis, lumbar region; Z98.890 Other specified postprocedural states
CPT/HCPCS: 72100

== ENCOUNTER → 2021-04-20 | Outpatient (CLI) | payer MEDICARE ==
[2019-10-16 11:00] VITALS: BP 144/54
--- NOTE | 2021-04-20 16:44 | KCIC ---
CT LUMBAR SPINE WO History: Low back pain, bilateral hip pain, previous surgery. Technique: Noncontrast CT was performed of the lumbar spine. Multiplanar reconstructions were perform ed. Comparison: Lumbar spine CT 10/13/2019 Findings: Normal vertebral body heights. Postsurgical features from posterior spinal fixation L3-L5. Left shahzad otomy at L3. No evidence of screw loosening or hardware complication. Mild retrolisthesis of L2 on L3. Mild retrolisthesis of L3 on L4 or. Mild anterolisthesis of L4 on L5 . T12-L1: No significant disc or facet disease L1-L2: Mild facet hypertrophy. Moderate disc space narrowing. No significant spinal canal or neural f oraminal stenosis. L2-L3: Retrolisthesis with severe disc height loss severely narrows the bilateral neural foramina and narrows the spinal canal to approximately 8 mm. L3-L4: Disc height loss, Facet hypertrophy and retrolisthesis severely narrow the left neural foramin a moderate narrowing at the right neural foramina. L4-L5: Anterolisthesis, disc height loss and facet hypertrophy moderately narrow the bilateral neural foramina. L5-S1: Mild facet hypertrophy. No significant spinal canal or neuroforaminal stenosis. Other: Atherosclerosis of the aorta and iliac arteries. No aneurysm. Impression: 1. Posterior spinal fixation L3-L5 without evidence of hardware complication. 2. Multilevel degenerative disc and facet disease with spondylolisthesis causing neural foraminal st enoses at multiple levels as above. Narrowing of the spinal canal at L2-L3 to approximately 8 mm. Exposure: One or more of the following individualized dose reduction techniques were utilized for thi s examination: 1. Automated exposure control 2. Adjustment of the mA and/or kV according to patient size 3. Use of iterative reconstruction technique. Electronically signed by: Jose Mcdonough MD (04/20/2021 4:41 PM) [facility]
== END ==
LOC: KCIC CT 12:40
PROVIDERS: ATTEND Neurological Surgery
DX: M51.36 Other intervertebral disc degeneration, lumbar region (principal); M47.897 Other spondylosis, lumbosacral region; M48.061 Spinal stenosis, lumbar region without neurogenic claudication; M43.16 Spondylolisthesis, lumbar region
CPT/HCPCS: 72131